=== PATIENT | female | born 1945 | race Caucasian/White ===

== ENCOUNTER 2019-08-29 19:25 | Inpatient (IN) | payer MEDICARE, SELFPAY ==
--- NOTE | ~2019-08-29 | XR_ITS ---
EXAMINATION: XR chest 1V portable INDICATION: Shortness of breath and hypoxia TECHNIQUE: Portable AP chest at 2017 hours COMPARISON: 03/31/2019 FINDINGS: A diffuse interstitial pattern is present. There no airspace opacities lung bases. Cardiome fabio is noted. There are small pleural effusions. No pneumothorax is identified. IMPRESSION: 1. Cardiomegaly with pulmonary edema. 2. Bibasilar airspace opacities, likely atelectasis. 2. Small pleural effusions. Reviewed, dictated and finalized at location A. ING CENTER MANAGER
--- NOTE | ~2019-08-29 | CT_ITS ---
EXAMINATION: CT brain wo con INDICATION: Multiple falls, head injury COMPARISON: None TECHNIQUE: Standard unenhanced head CT. The dose-length product (DLP) was 605.33 mGy-cm. The mA was a djusted according to patient size. Iterative reconstruction technique was employed. FINDINGS: There is no acute intraparenchymal hemorrhage. No evidence of mass lesion. No evidence of a cute infarction. There is mild periventricular and subcortical hypodensity probably related to small vessel ischemic disease. There is mild prominence of the sulci and ventricles related to cerebral atr ophy. Intracranial calcified cerebral atherosclerosis is noted. There are no extra-axial collections. There is no mass effect or midline shift. Changes in the globes are likely from ocular lens surgery. There is mild mucosal thickening of the paranasal sinuses. IMPRESSION: 1. No acute intracranial abnormality. 2. Age related findings. Reviewed, dictated and finalized at location A. IRER KILN CAR
--- NOTE | 2019-08-29 19:28 | ED.GENADULT ---
HPI - General Adult General Chief complaint: Nausea/Vomiting/Diarrhea Stated complaint: nausea Time Seen by Provider: 08/29/19 19:25 Source: patient and EMS Mode of arrival: EMS Limitations: clinical condition History of Present Illness HPI narrative: Patient was brought in by EMS after family called because of her shortness of breath, this is the second call today to that that residence. The patient refused transfer earlier today, the second call included nausea and vomiting. When EMS arrived this time the patient was short of breath, pale, the oxygen saturation was in the low 80s, they placed the patient on oxygen and brought her to the emergency room. There is no family with the patient at this time, report from EMS states that they were told at the scene that she has been being followed by neighborhood planner for a leaky valve for which she needed what sounds like a ISMAEL echo for more evaluation. The N/V is new today. Onset (ago): hour(s) Related Data Allergies Allergy/AdvReac Type Severity Reaction Status Date / Time No Known Allergies Allergy Verified 03/20/19 11:55 Review of Systems Review of Systems: ROS unobtainable: unobtainable due to mental condition [facility] Surgical History Surgical History Stented coronary artery Family History Family History Sibling Patient's brother is in good health Family history of malignant neoplasm Father Family history of diabetes mellitus in first degree relative Family history of heart disease in male family member before age 55 Diabetes mellitus Family history of cardiovascular disease Family history of congestive heart failure Mother Family history of diabetes mellitus in first degree relative Diabetes mellitus Other Hypertension Social History Social History Smoking status: Never smoker Alcohol intake: never Gender identity (if verbalized by the patient): Female Exam Const: General: diaphoretic and ill appearing (pale and lethargic) acutely HENMT: Head: hematoma (frontal, in hair line. Now green in color.) Ears: TM's normal bilaterally Mouth: Yes dry mucous membranes Eyes: Conjunctivae: conjunctivae normal Pupils: Equal, round and reactive pupils present EOM: EOMs intact bilaterally Chest: Chest palpation & inspection: normal inspection of the chest Resp: Effort & Inspection: tachypneic Auscultation: rales bilateral and diminished lung sounds (both bases) Cardio: Rate: regular rate and tachycardic Rhythm: regular rhythm Heart sounds: Murmur heart sound present continuous GI: GI Palp: Yes Soft to palpation Auscultation: normal bowel sounds Skin: General skin exam: normal color Other: bruising over middle forehead. Extrem: General: normal to inspection, no clubbing, cyanosis or edema and other (cool to touch) Course Course Emergency Course: Patient's is at bedside and adding to the history. Patient is more alert with improved oxygenation and also able to give some history. Patient's states that she began vomiting this afternoon, she only vomited once and the patient states it was because she drank a large volume of Pedialyte and then some Pepto-Bismol. She had been feeling well and that is why she was drinking Pedialyte, the says she finally he finally got her to drink some Gatorade as well. She has not been well for several days with her breathing. Patient also states that on Sunday they went to a and her legs were not working right , she is she and her both state that she was staggering, unable to walk in a straight line. She fell and hit her head 3 weeks ago and then fell again 3 days ago, hence the bruise on her upper forehead. Her also tells me that he had been ill himself and had been in charge of her medications, she is not relia
--- NOTE | 2019-08-29 19:41 | ECG_ITS ---
Measurements Intervals Marcell Rate: 70 P: 76 WI: 159 QRS: 61 QRSD: 98 T: 31 QT: 428 QTc: 463 Interpretive Statements SINUS RHYTHM LOW QRS VOLTAGE- DIFFUSE LEADS BASELINE ARTIFACT- II, III, AVL, AVF, V1-V6 BORDERLINE ECG Electronically Signed On 08-30-2019 8:21:12 OYSTER FISHERMAN by Gregory Donahue D.O.
[2019-08-29 20:04] LABS: Alveolar/Arterial O2 Gradient 580.6 mmHg; Base Excess ABG -10.4 mEq/l (+/-2.0); Fractional Inspired Oxygen 100 %; HCO3 ABG 16.2 mEq/l (22.0-26.0); Oxygen Content ABG 19.8 %vol (16.0-22.0); Oxyhemoglobin 94.9 % THb (90.0-100.0); PCO2 ABG 38.7 mmHg (35.0-45.0); PO2 ABG 93.7 mmHg (80.0-100.0); PO2 FiO2 Ratio Arterial Blood 0.94 %; Total Hemoglobin 14.8 g/dL (12.0-18.0)
[2019-08-29 20:05] LABS: Device NON-REBREATHER MASK; Site Drawn RIGHT BRACHIAL; pH ABG 7.241 (7.350-7.450)
[2019-08-29 20:12] VITALS: BP 145/95; PULSE 80; RESP 32; TEMP 36.2; O2SAT 86
[2019-08-29 20:18] LABS: Basophils Absolute Auto 0.1 K/mm3 (0.0-0.1); Eosinophils Absolute Auto 0.1 K/mm3 (0-0.3); Eosinophils Percent Auto 0.4 % (0-4.4); Hematocrit 45.5 % (37.0-47.0); Hemoglobin 14.7 g/dL (12.0-15.0); Immature Granulocyte Absolute 0.09 K/mm3 (0.00-0.031); Immature Granulocyte Percent A 0.7 % (0-0.5); Immature Platelet Fraction Pct 17.5 % (0.9-11.2); Lymphocytes Absolute Auto 3.59 K/mm3 (0.9-3.2); Lymphocytes Percent Auto 28.6 % (18.3-44.2); Mean Corpuscular HGB Conc 32.3 g/dl (32-36); Mean Corpuscular Hemoglobin 31.7 pg (26-34); Mean Corpuscular Volume 98.3 fl (80-100); Mean Platelet Volume 13.9 fl (7.4-10.4); Monocytes Absolute Auto 0.7 K/mm3 (0.1-0.6); Monocytes Percent Auto 5.5 % (2.6-8.5); Neutrophils Percent Auto 63.8 % (45.5-73.1); Platelet Count Result 209 k/mm3 (150-375); Red Blood Count 4.63 M/mm3 (4.2-5.4); Red Cell Distribution Width 13.6 % (11.5-14.5); White Blood Count 12.5 K/mm3 (4.5-10.0)
--- NOTE | 2019-08-29 20:23 | PC.NURSE ---
called to add on bnp
[2019-08-29 20:30] LABS: Alanine Aminotransferase 35 U/L (4-35); Albumin Level 4.1 g/dL (3.5-5.1); Alkaline Phosphatase 89 U/L (38-126); Aspartate Amino Transferase 46 U/L (14-36); Bilirubin,Total 1.3 mg/dL (0.2-1.3); Blood Urea Nitrogen 17 mg/dL (7-17); Calcium 9.1 mg/dL (8.4-10.2); Carbon Dioxide 17 mmol/L (22-30); Chloride 94 mmol/L (98-107); Estimated CRCL calculation 32 ml/min; Estimated Glomerular Filt Rate 40; Glucose 253 mg/dL (65-105); Potassium 4.7 mmol/L (3.4-5.0); Sodium 135 mmol/L (137-145)
[2019-08-29 20:32] LABS: Lactic Acid 7.2 mmol/L (0.7-2.1)
[2019-08-29 20:41] LABS: Troponin I < 0.012 ng/mL (0.000-0.034)
[2019-08-29 20:46] LABS: NT Pro B Type Natriuretic Pept 22600 PG/ML (5-100)
[2019-08-29 20:59] VITALS: BP 117/75; PULSE 66; RESP 32; O2SAT 96
[2019-08-29] MEDS: FUROSEMIDE INJ 40 MG/4 ML VIAL IV PUSH (20:59)
[2019-08-29 21:06] LABS: Add Urine Microscopic? YES; Appearance Urine Clear (Clear); Bilirubin Urine Negative (Negative); Blood Urine Negative (Negative); Color Urine Amber (Yellow); Glucose Urine UA Negative (Negative); Ketones Urine Negative (Negative); Leukocyte Esterase Ur Negative LEU/UL (Negative); Mucus Urine Rare /lpf; Nitrate Urine Negative (Negative); Protein Urine 1+ mg/dL (Negative); RBC Urine 0-2 /hpf (0-2); Specific Grav Ur 1.021 (1.001-1.035); Squamous Epithelial Cell Urine Rare /hpf (Few); Urobilinogen Urine Negative mg/dL (<2.0); WBC Urine 0-3 /hpf
[2019-08-29 21:13] VITALS: BP 110/67; PULSE 65; RESP 24; O2SAT 96
[2019-08-29 21:34] LABS: Beta-Hydroxybutyrate/Acetoacetate 0.29 mmol/L (0.02-0.27)
--- NOTE | 2019-08-29 22:13 | PM.IMHP ---
H&P: HPI History of Present Illness Chief complaint: CHF Narrative: This is a 73 year old with known history of paroxysmal atrial fibrillation, CAD, and combined systolic and diastolic heart failure who is known to follow up with Cardiology at [facility] and presented to our hospital with a complaint of increased shortness of breath, nausea and vomiting. The patient has been feeling ill for the past two days with dull periumbilical abdominal discomfort that has been intermittent in nature. She has also had nausea and vomited a few times today. She only ate soup yesterday and today had a couple of bites of toast. EMS was called out to her house this morning secondary to her shortness of breath but she refused to come to the hospital. [facility] was called again because now she was nauseated and vomiting. She was found to be saturating in the low 80s and was brought to the hospital on oxygen. On my encounter with the patient she complains of increased generalized weakness and just feeling awful. She believes she might have had fever today but denies any coughing, sore throat, congestion, dysuria, hematuria, diarrhea or rectal bleeding. She has not been on antibiotics lately. She does report several falls at home about 3 days ago which she attributed to losing her balance and does have a bruise on the right side of her forehead. The patient was previously followed by the heart care group but she went to [facility] for a second opinion for her 3 leaky valves . She did have an echocardiogram performed about 1 week ago. The patient is not on any anticoagulation despite Cardiology's efforts. Our last known Echocardiogram demonstrated an EF of 40% with severe mitral regurgitation and right ventricular and left ventricular hypokinesis. Review of Systems Review of Systems: All systems reviewed & are unremarkable except as noted in HPI and below [facility] Past Medical History Medical History (Updated 08/30/19 @ 03:58 by Dutch Beaver MD) Anxiety Fibromyalgia H pylori ulcer Hyperlipidemia VICKI (obstructive sleep apnea) Paroxysmal atrial fibrillation Right renal mass Surgical History Surgical History Stented coronary artery Family History Family History Sibling Patient's brother is in good health Family history of malignant neoplasm Father Family history of diabetes mellitus in first degree relative Family history of heart disease in male family member before age 55 Diabetes mellitus Family history of cardiovascular disease Family history of congestive heart failure Mother Family history of diabetes mellitus in first degree relative Diabetes mellitus Other Hypertension Social History Social History Smoking status: Former smoker Alcohol intake: former Substance use: former Gender identity (if verbalized by the patient): Female Spiritual care concerns: No Meds Home Medications and Allergies Home Medications Medication Instructions Recorded Confirmed Type buspirone 5 mg tablet 2.5 mg PO BID #30 tablet 08/08/19 08/29/19 Rx apixaban [Eliquis] 5 mg PO BID 08/29/19 08/29/19 History brimonidine 1 drp OPHTHALMIC (EYE) BID 08/29/19 08/29/19 History diazepam [Valium] 10 mg PO HS PRN 08/29/19 08/29/19 History metoprolol succinate [Toprol XL] 50 mg PO DAILY 08/29/19 08/29/19 History pantoprazole [Protonix] 40 mg PO DAILY 08/29/19 08/29/19 History rosuvastatin [Crestor] 40 mg PO DAILY 08/29/19 08/29/19 History digoxin 125 mcg PO DAILY 08/30/19 08/30/19 History sertraline [Zoloft] 50 mg PO HS 08/30/19 08/30/19 History Allergies Allergy/AdvReac Type Severity Reaction Status Date / Time No Known Allergies Allergy Verified 03/20/19 11:55 Vital Signs Vital Signs - 24 hr 08/29/19 20:12 08/29/19 20:59 08/29/19 21:13 Temperat
[2019-08-29 22:28] VITALS: BP 101/64; PULSE 63; RESP 20; O2SAT 93
--- NOTE | 2019-08-29 22:41 | ADMGEN ---
This patient, Adore Mtz, was admitted to IMU Room 209-01. Patient/family oriented to hospital policies and general routines including ID bracelet, bed and alarms, visiting hours, pain management, procedures, bathroom and other care routines, personal items, smoking policy, room service/diet, and visiting hours. Valuables list has been completed. Information on how to activate the Rapid Response Team has been discussed. Patient/Family are encouraged to report perceived risks to care and to ask questions if they do not understand what they are told or what they should do.
[2019-08-29 22:48] VITALS: PULSE 65
[2019-08-29 22:56] VITALS: BP 110/39; PULSE 65; RESP 18; TEMP 36.3; O2SAT 95; BMI 20.3
[2019-08-29 23:22] LABS: Alveolar/Arterial O2 Gradient 178.9 mmHg; Base Excess ABG -3.7 mEq/l (+/-2.0); Fractional Inspired Oxygen 40 %; HCO3 ABG 20.1 mEq/l (22.0-26.0); Oxygen Content ABG 18.4 %vol (16.0-22.0); Oxygen Saturation ABG 94.1 % (95.0-100.0); Oxyhemoglobin 92.7 % THb (90.0-100.0); PCO2 ABG 32.7 mmHg (35.0-45.0); PO2 ABG 68.7 mmHg (80.0-100.0); PO2 FiO2 Ratio Arterial Blood 1.72 %; Total Hemoglobin 14.1 g/dL (12.0-18.0); pH ABG 7.406 (7.350-7.450)
[2019-08-29 23:24] LABS: Device NASAL CANNULA; Modified Allen's Test Pass; Site Drawn LEFT RADIAL
[2019-08-30] VITALS (15 sets, daily range): BP systolic 97–118; BP diastolic 40–71; PULSE 67–142; RESP 16–18; TEMP 36.1–37.1; O2SAT 94–99
[2019-08-30 00:24] LABS: Glucose Point of Care 121 (65-105)
[2019-08-30] MEDS: DIGOXIN INJ 250 MCG/ML 2 ML AMP (*BKC) 500 MCG IV PUSH (01:01)
[2019-08-30] MEDS: APIXABAN 5 MG TABLET PO (02:17)
[2019-08-30] MEDS: SERTRALINE HCL 50 MG TABLET PO (02:17)
[2019-08-30] MEDS: DIAZEPAM 10 MG TABLET PO (02:19)
[2019-08-30 03:20] LABS: Basophils Absolute Auto 0.1 K/mm3 (0.0-0.1); Basophils Percent Auto 0.4 % (0.2-1.2); Hematocrit 41.2 % (37.0-47.0); Hemoglobin 13.8 g/dL (12.0-15.0); Immature Granulocyte Absolute 0.08 K/mm3 (0.00-0.031); Immature Granulocyte Percent A 0.7 % (0-0.5); Immature Platelet Fraction Pct 18.6 % (0.9-11.2); Lymphocytes Absolute Auto 1.23 K/mm3 (0.9-3.2); Lymphocytes Percent Auto 10.5 % (18.3-44.2); Mean Corpuscular HGB Conc 33.5 g/dl (32-36); Mean Corpuscular Hemoglobin 31.7 pg (26-34); Mean Corpuscular Volume 94.7 fl (80-100); Monocytes Absolute Auto 0.8 K/mm3 (0.1-0.6); Monocytes Percent Auto 6.8 % (2.6-8.5); Neutrophils Absolute Auto 9.5 K/mm3 (1.3-6.7); Neutrophils Percent Auto 81.6 % (45.5-73.1); Red Blood Count 4.35 M/mm3 (4.2-5.4); Red Cell Distribution Width 13.3 % (11.5-14.5); White Blood Count 11.7 K/mm3 (4.5-10.0)
[2019-08-30 03:30] LABS: Lactic Acid Reflex 1.9 mmol/L (0.7-2.1)
[2019-08-30 03:31] LABS: Blood Urea Nitrogen 18 mg/dL (7-17); Calcium 8.4 mg/dL (8.4-10.2); Carbon Dioxide 27 mmol/L (22-30); Chloride 95 mmol/L (98-107); Estimated CRCL calculation 34 ml/min; Estimated Glomerular Filt Rate 44; Glucose 76 mg/dL (65-105); Magnesium 1.9 mg/dL (1.6-2.3); Sodium 134 mmol/L (137-145)
[2019-08-30 03:33] LABS: Hemoglobin A1C 4.8 % (<5.7)
[2019-08-30] MEDS: PANTOPRAZOLE SODIUM IV 40 MG VIAL IV PUSH (08:36)
[2019-08-30] MEDS: METOPROLOL SUCCINATE EXT REL 50 MG TABCR PO (08:37)
[2019-08-30] MEDS: ROSUVASTATIN 10 MG TABLET 40 MG PO (08:37)
[2019-08-30] MEDS: BRIMONIDINE TARTRATE 0.2% OP SOLN 5 ML BTL 1 DROP EACH EYE (08:38)
--- NOTE | 2019-08-30 12:34 | PM.CNCAR ---
Assessment and Plan Assessment and plan (1) Paroxysmal atrial fibrillation: Code(s): I48.0 - Paroxysmal atrial fibrillation Status: Chronic Assessment and Plan: Currently she is in AFib but rate is well controlled, she is on Eliquis but she has risk of falling as she had multiple falls for the past few months, she seems to be confused, making it very high risk for falling and according bleeding, with that in mind she would be better of switched to full-dose aspirin and stop the Eliquis (2) Acute CHF: Qualifiers: Heart failure type: combined systolic and diastolic Qualified Code(s): I50.41 - Acute combined systolic (congestive) and diastolic (congestive) heart failure Code(s): I50.9 - Heart failure, unspecified Status: Acute Assessment and Plan: Initially was having mild respiratory distress, currently she seems to be well compensated, lungs are clear, she seems to be stable from cardiac standpoint to be discharged to have a follow-up as an outpatient. She sees transfer and pumphouse operator in [facility], she can follow up there or she can come follow-up here if she wants to (3) Metabolic acidosis with increased anion gap and accumulation of organic acids: Code(s): E87.2 - Acidosis Status: Acute (4) Fall: Code(s): W19.XXXA - Unspecified fall, initial encounter Status: Acute Assessment and Plan: Multiple falls, would stop Eliquis due to fall and risk of bleeding (5) Mitral incompetence: Code(s): I34.0 - Nonrheumatic mitral (valve) insufficiency Status: Acute Assessment and Plan: She had echocardiogram at [facility], will try to get that. Additional Plan Thank you for allowing me to participate in this patient's care, I will be following up with you. Please do not hesitate to call me for any other inquiry History of Present Illness History of Present Illness Consult date/time: 08/30/19 12:34 73 years old lady with history of chronic atrial fibrillation, history of confusion, peptic ulcer disease, was admitted to the hospital because of worsening shortness of breath. Apparently she was at [facility] with possible acute myocardial fraction, she had workup which was negative but subsequently discharged, she was noted to have mitral regurgitation on her echo, and she has history of [id number] shortness of breath with mild orthopnea. No PNDs, no significant leg swelling. She has mild shortness breath with mild exertion, no recent chest pain, she has history of chronic atrial fibrillation but no history of current palpitation. She had frequent falls recently, but no major injury no bruises. Currently she is comfortable, lying in bed, she seems to be slightly confused. Reason For Visit: CHF Review of Systems Constitutional: Constitutional: Reports fatigue Cardiovascular: Cardiovascular: Reports as per HPI Respiratory: Respiratory: Reports dyspnea and Reports dyspnea on exertion Gastrointestinal: Gastrointestinal: Reports as per HPI and Reports bloating PMFSH Past Medical History Medical History Anxiety Fibromyalgia H pylori ulcer Hyperlipidemia VICKI (obstructive sleep apnea) Paroxysmal atrial fibrillation Right renal mass Surgical History Surgical History Stented coronary artery Family History Family History Sibling Patient's brother is in good health Family history of malignant neoplasm Father Family history of diabetes mellitus in first degree relative Family history of heart disease in male family member before age 55 Diabetes mellitus Family history of cardiovascular disease Family history of congestive heart failure Mother Family history of diabetes mellitus in first degree relative Diabetes mellitus Other Hypertension
[2019-08-30 13:46] LABS: NT Pro B Type Natriuretic Pept > 35000 PG/ML (5-100)
--- NOTE | 2019-08-30 15:51 | PM.IMPN ---
Progress Note: A&P Assessment and Plan (1) Acute respiratory failure: Qualifiers: Respiratory failure complication: hypoxia Qualified Code(s): J96.01 - Acute respiratory failure with hypoxia Code(s): J96.00 - Acute respiratory failure, unspecified whether with hypoxia or hypercapnia Status: Acute Assessment and Plan: Likely secondary to pulmonary edema and acute CHF exacerbation. continue oxygen and iv lasix for diuresis. (2) Acute CHF: Qualifiers: Heart failure type: combined systolic and diastolic Qualified Code(s): I50.41 - Acute combined systolic (congestive) and diastolic (congestive) heart failure Code(s): I50.9 - Heart failure, unspecified Status: Acute Assessment and Plan: Try to obtain notes from [facility] Echocardiogram was just obtained last week at [facility] and we will obtain a copy of the report. Cardiology consultation in am. - Dr. Box. (3) Pulmonary edema: Qualifiers: Chronicity: acute Qualified Code(s): J81.0 - Acute pulmonary edema Code(s): J81.1 - Chronic pulmonary edema Status: Acute Assessment and Plan: Appears to be secondary to acute CHF exacerbation. The patient has already recieved IV lasix in the ER.continue diuresis with iv lasix (4) Severe sepsis: Code(s): A41.9 - Sepsis, unspecified organism; R65.20 - Severe sepsis without septic shock Status: Acute Assessment and Plan: W/ elevated lactic acid and respiratory failure - no currently on iv abx, continue to watch. (5) Metabolic acidosis with increased anion gap and accumulation of organic acids: Code(s): E87.2 - Acidosis Status: Acute Assessment and Plan: Likely secondary to both acute CHf exacerbation as well as acute renal failure. (6) Acute renal failure: Qualifiers: Acute renal failure type: unspecified Qualified Code(s): N17.9 - Acute kidney failure, unspecified Code(s): N17.9 - Acute kidney failure, unspecified Status: Acute Assessment and Plan: Likely secondary to acute CHF. (7) Paroxysmal atrial fibrillation: Code(s): I48.0 - Paroxysmal atrial fibrillation Status: Chronic Assessment and Plan: Continue digoxin and Eliquis. (8) Anxiety: Code(s): F41.9 - Anxiety disorder, unspecified Status: Chronic Assessment and Plan: Continue diazepam. (9) Hyperlipidemia: Qualifiers: Hyperlipidemia type: unspecified Qualified Code(s): E78.5 - Hyperlipidemia, unspecified Code(s): E78.5 - Hyperlipidemia, unspecified Status: Chronic Assessment and Plan: Continue crestor (10) Fibromyalgia: Code(s): M79.7 - Fibromyalgia Status: Chronic Assessment and Plan: Pain control as needed. Subjective Date/time seen: 08/30/19 15:51 Interval history: 3 year old with known history of paroxysmal atrial fibrillation, CAD, and combined systolic and diastolic heart failure who is known to follow up with Cardiology at [facility], admiited here with increased shortness of breath, nausea and vomiting. Recent echo shows - EF of 40% with severe mitral regurgitation and right ventricular and left ventricular hypokinesis. pt is a poor histian due to dementia, cxr shows pulmonary edema here, ct abdomen shows 1.4 cm right renal lesion demonstrating both enhancing soft tissue as well as a significant component of macroscopic fat consistent with a benign angiomyolipoma.ct head shows- no acute abnormalities Review of Systems Review of Systems: All systems reviewed & are unremarkable except as noted in HPI and below Exam Const: General: cooperative, no acute distress, alert, awake and ill appearing chronically Nutritional Appearance: thin and underweight Orientation/consciousness: patient oriented x3 HENMT: Head: normal to inspection General nose exam: Normal ex
[2019-08-30] MEDS: busPIRone HCL 2.5 MG TABLET PO (17:07)
--- NOTE | 2019-08-30 17:14 | PC.NURSE ---
Patient received from IMU. Patient in bed resting comfortably with no complaints at this time. Will continue to monitor patient.
[2019-08-31] VITALS (14 sets, daily range): BP systolic 99–111; BP diastolic 50–75; PULSE 67–96; RESP 16–18; TEMP 36.3–37.2; O2SAT 95–98
[2019-08-31] MEDS: SERTRALINE HCL 50 MG TABLET PO ×2 (00:35→20:19)
[2019-08-31] MEDS: DIAZEPAM 5 MG TABLET 10 MG PO ×2 (01:46→20:19)
[2019-08-31 06:00] LABS: Hematocrit 39.5 % (37.0-47.0); Hemoglobin 13.2 g/dL (12.0-15.0); Mean Corpuscular HGB Conc 33.4 g/dl (32-36); Mean Corpuscular Hemoglobin 32.1 pg (26-34); Mean Corpuscular Volume 96.1 fl (80-100); Mean Platelet Volume 12.6 fl (7.4-10.4); Platelet Count Result 155 k/mm3 (150-375); Red Blood Count 4.11 M/mm3 (4.2-5.4); Red Cell Distribution Width 13.5 % (11.5-14.5); White Blood Count 10.1 K/mm3 (4.5-10.0)
[2019-08-31 06:19] LABS: Blood Urea Nitrogen 11 mg/dL (7-17); Calcium 8.3 mg/dL (8.4-10.2); Carbon Dioxide 31 mmol/L (22-30); Chloride 102 mmol/L (98-107); Estimated CRCL calculation 37 ml/min; Estimated Glomerular Filt Rate 54; Glucose 86 mg/dL (65-105); Potassium 3.5 mmol/L (3.4-5.0); Sodium 138 mmol/L (137-145)
[2019-08-31] MEDS: ROSUVASTATIN 10 MG TABLET 40 MG PO (08:18)
[2019-08-31] MEDS: busPIRone HCL 2.5 MG TABLET PO ×2 (08:19→17:55)
[2019-08-31] MEDS: DIGOXIN TAB 125 MCG TABLET PO (08:19)
[2019-08-31] MEDS: ASPIRIN 325 MG ENTERIC TABLET PO (08:19)
[2019-08-31] MEDS: FUROSEMIDE INJ 40 MG/4 ML VIAL 20 MG IV PUSH (08:20)
[2019-08-31] MEDS: BRIMONIDINE TARTRATE 0.2% OP SOLN 5 ML BTL 1 DROP EACH EYE ×2 (08:20→17:55)
[2019-08-31] MEDS: METOPROLOL SUCCINATE EXT REL 50 MG TABCR PO (08:20)
[2019-08-31] MEDS: PANTOPRAZOLE 40 MG TABLET PO (08:21)
--- NOTE | 2019-08-31 14:33 | PM.PNCARD ---
Progress Note: A&P Assessment and Plan (1) Paroxysmal atrial fibrillation: Code(s): I48.0 - Paroxysmal atrial fibrillation Status: Chronic Assessment and Plan: Currently she is in AFib but rate is well controlled, she is on Eliquis but she has risk of falling as she had multiple falls for the past few months, she seems to be confused, making it very high risk for falling and according bleeding, with that in mind she would be better of switched to full-dose aspirin and stop the Eliquis (2) Acute CHF: Qualifiers: Heart failure type: combined systolic and diastolic Qualified Code(s): I50.41 - Acute combined systolic (congestive) and diastolic (congestive) heart failure Code(s): I50.9 - Heart failure, unspecified Status: Acute Assessment and Plan: Initially was having mild respiratory distress, currently she seems to be well compensated, lungs are clear, she seems to be stable from cardiac standpoint to be discharged to have a follow-up as an outpatient. She sees telecasting technician in [facility], she is scheduled for ISMAEL with them next week she can follow up there. (3) Metabolic acidosis with increased anion gap and accumulation of organic acids: Code(s): E87.2 - Acidosis Status: Acute (4) Fall: Code(s): W19.XXXA - Unspecified fall, initial encounter Status: Acute Assessment and Plan: Multiple falls, would stop Eliquis due to fall and risk of bleeding (5) Mitral incompetence: Code(s): I34.0 - Nonrheumatic mitral (valve) insufficiency Status: Acute Assessment and Plan: She had echocardiogram at [facility] [place], will try to get that. Additional Plan Thank you for allowing me to participate in this patient's care, I will be following up with you. Please do not hesitate to call me for any other inquiry Subjective Date/time seen: 08/31/19 14:33 She seems to be doing okay today, she has mild cough, on the monitor she is in and out of AFib but rate is well controlled. Echocardiogram from [facility] was reviewed which showed normal left ventricular Petterchak function but with moderate to severe mitral valve regurgitation. According to her she is scheduled to have ISMAEL next week with Dr. Falk Exam Narrative: Exam Narrative: Awake alert oriented x2, with some confusion about details, not in acute distress Neck is supple no obvious JVD, no carotid bruit Chest: Good air entry bilaterally, lungs are clear to auscultation and percussion bilaterally Cardiovascular: Irregularly irregular rhythm, 2/6 systolic murmur noted left sternal border Abdomen: Soft nontender bowel sounds positive Extremities: No edema has good pulses distally bilaterally Objective Data Vital Signs Vital Signs: Vital Signs - 24 hr 08/30/19 17:11 08/30/19 20:00 08/30/19 21:36 Temperature 36.7 C Pulse Rate 86 84 101 H Respiratory Rate 18 Blood Pressure 104/55 L Pulse Oximetry 95 08/31/19 00:00 08/31/19 02:00 08/31/19 04:00 Temperature 36.7 C Pulse Rate 71 96 92 Respiratory Rate 16 Blood Pressure 111/58 L Pulse Oximetry 96 08/31/19 05:08 08/31/19 08:00 08/31/19 08:19 Temperature 36.8 C Pulse Rate 92 87 89 Respiratory Rate 18 Blood Pressure 99/52 L Pulse Oximetry 95 08/31/19 08:20 08/31/19 10:00 08/31/19 12:00 Temperature 37.0 C Pulse Rate 89 92 82 Respiratory Rate 16 Blood Pressure 110/57 L Pulse Oximetry 98 Intake/Output Intake/Output: Intake & Output 08/28/19 08/29/19 08/30/19 08/31/19 23:59 23:59 23:59 23:59 Intake Total 900 610 Output Total 1200 1150 Balance -300 -540 Meds/Results Medications: Active Medications Generic Name Dose Route Start Last Admin Trade Name Chad PRN Reason Stop Dose Admin Aspirin 325 mg 08/31/19 09:00 08/31/19 08:19 Aspirin Ec PO 325 mg QAM EMILY Administration Brimonidine Tartrate 1 drop 08/30/19 09:00 08/31/19 0
--- NOTE | 2019-08-31 16:24 | PM.IMPN ---
Progress Note: A&P Assessment and Plan (1) Acute respiratory failure: Qualifiers: Respiratory failure complication: hypoxia Qualified Code(s): J96.01 - Acute respiratory failure with hypoxia Code(s): J96.00 - Acute respiratory failure, unspecified whether with hypoxia or hypercapnia Status: Acute Assessment and Plan: Likely secondary to pulmonary edema and acute CHF exacerbation. continue oxygen and iv lasix for diuresis. (2) Acute CHF: Qualifiers: Heart failure type: combined systolic and diastolic Qualified Code(s): I50.41 - Acute combined systolic (congestive) and diastolic (congestive) heart failure Code(s): I50.9 - Heart failure, unspecified Status: Acute Assessment and Plan: Try to obtain notes from [facility] Echocardiogram was just obtained last week at [facility] and we will obtain a copy of the report. Cardiology consultation in am. - Dr. Box. (3) Pulmonary edema: Qualifiers: Chronicity: acute Qualified Code(s): J81.0 - Acute pulmonary edema Code(s): J81.1 - Chronic pulmonary edema Status: Acute Assessment and Plan: Appears to be secondary to acute CHF exacerbation. The patient has already recieved IV lasix in the ER.continue diuresis with iv lasix (4) Severe sepsis: Code(s): A41.9 - Sepsis, unspecified organism; R65.20 - Severe sepsis without septic shock Status: Acute Assessment and Plan: W/ elevated lactic acid and respiratory failure - no currently on iv abx, continue to watch. (5) Metabolic acidosis with increased anion gap and accumulation of organic acids: Code(s): E87.2 - Acidosis Status: Acute Assessment and Plan: Likely secondary to both acute CHf exacerbation as well as acute renal failure. (6) Acute renal failure: Qualifiers: Acute renal failure type: unspecified Qualified Code(s): N17.9 - Acute kidney failure, unspecified Code(s): N17.9 - Acute kidney failure, unspecified Status: Acute Assessment and Plan: Likely secondary to acute CHF. (7) Paroxysmal atrial fibrillation: Code(s): I48.0 - Paroxysmal atrial fibrillation Status: Chronic Assessment and Plan: Continue digoxin and Eliquis. (8) Anxiety: Code(s): F41.9 - Anxiety disorder, unspecified Status: Chronic Assessment and Plan: Continue diazepam. (9) Hyperlipidemia: Qualifiers: Hyperlipidemia type: unspecified Qualified Code(s): E78.5 - Hyperlipidemia, unspecified Code(s): E78.5 - Hyperlipidemia, unspecified Status: Chronic Assessment and Plan: Continue crestor (10) Fibromyalgia: Code(s): M79.7 - Fibromyalgia Status: Chronic Assessment and Plan: Pain control as needed. Subjective Date/time seen: 08/31/19 16:24 Interval history: 73 year old with known history of paroxysmal atrial fibrillation, CAD, and combined systolic and diastolic heart failure who is known to follow up with Cardiology at [facility], admiited here with increased shortness of breath, nausea and vomiting. Pt admitted with pulmonary edema, acute on chronic systolic heart failure. pt feels better breathing is improving. Recent echo shows - EF of 40% with severe mitral regurgitation and right ventricular and left ventricular hypokinesis. pt is a poor histian due to dementia, cxr shows pulmonary edema here, ct abdomen shows 1.4 cm right renal lesion demonstrating both enhancing soft tissue as well as a significant component of macroscopic fat consistent with a benign angiomyolipoma.ct head shows- no acute abnormalities Review of Systems Review of Systems: All systems reviewed & are unremarkable except as noted in HPI and below Cardiovascular: Cardiovascular: Reports leg edema and Reports dyspnea Exam Const: General: ill appearing chronically Nutritional Appeara
[2019-09-01] VITALS (17 sets, daily range): BP systolic 75–127; BP diastolic 40–113; PULSE 60–87; RESP 14–18; TEMP 36.3–36.6; O2SAT 90–100; BMI 19.5
[2019-09-01 05:21] LABS: Hematocrit 37.9 % (37.0-47.0); Hemoglobin 12.5 g/dL (12.0-15.0); Mean Corpuscular Volume 96.9 fl (80-100); Mean Platelet Volume 12.3 fl (7.4-10.4); Platelet Count Result 157 k/mm3 (150-375); Red Blood Count 3.91 M/mm3 (4.2-5.4); Red Cell Distribution Width 13.7 % (11.5-14.5)
[2019-09-01 05:31] LABS: Blood Urea Nitrogen 9 mg/dL (7-17); Calcium 8.3 mg/dL (8.4-10.2); Carbon Dioxide 30 mmol/L (22-30); Chloride 102 mmol/L (98-107); Estimated CRCL calculation 46 ml/min; Estimated Glomerular Filt Rate > 60; Glucose 120 mg/dL (65-105); Potassium 3.5 mmol/L (3.4-5.0); Sodium 137 mmol/L (137-145)
[2019-09-01] MEDS: POTASSIUM CHLORIDE 20 MEQ PACKET (FOR LIQUID) 40 MEQ PO (08:54)
[2019-09-01] MEDS: ROSUVASTATIN 10 MG TABLET 40 MG PO (08:54)
[2019-09-01] MEDS: PANTOPRAZOLE 40 MG TABLET PO (08:55)
[2019-09-01] MEDS: busPIRone HCL 2.5 MG TABLET PO ×2 (08:55→17:28)
[2019-09-01] MEDS: DIGOXIN TAB 125 MCG TABLET PO (08:55)
[2019-09-01] MEDS: BRIMONIDINE TARTRATE 0.2% OP SOLN 5 ML BTL 1 DROP EACH EYE ×2 (08:55→17:28)
[2019-09-01] MEDS: METOPROLOL SUCCINATE EXT REL 50 MG TABCR PO (08:55)
[2019-09-01] MEDS: ASPIRIN 325 MG ENTERIC TABLET PO (08:55)
--- NOTE | 2019-09-01 10:03 | PCPTNOTE ---
Attempted PT eval. Juan Carlos ASHBY stated to hold therapy due to low BP. Will try again later today.
--- NOTE | 2019-09-01 14:07 | PM.PNCARD ---
Progress Note: A&P Assessment and Plan (1) Paroxysmal atrial fibrillation: Code(s): I48.0 - Paroxysmal atrial fibrillation Status: Chronic Assessment and Plan: Currently she is in AFib but rate is well controlled, she is on Eliquis but she has risk of falling as she had multiple falls for the past few months, she seems to be confused, making it very high risk for falling and according bleeding, with that in mind she would be better of switched to full-dose aspirin and stop the Eliquis (2) Acute CHF: Qualifiers: Heart failure type: combined systolic and diastolic Qualified Code(s): I50.41 - Acute combined systolic (congestive) and diastolic (congestive) heart failure Code(s): I50.9 - Heart failure, unspecified Status: Acute Assessment and Plan: Initially was having mild respiratory distress, currently she seems to be well compensated, lungs are clear, she seems to be stable from cardiac standpoint to be discharged to have a follow-up as an outpatient. She sees guidance counselor in [facility], she is scheduled for ISMAEL with them next week she can follow up there. (3) Metabolic acidosis with increased anion gap and accumulation of organic acids: Code(s): E87.2 - Acidosis Status: Acute (4) Fall: Code(s): W19.XXXA - Unspecified fall, initial encounter Status: Acute Assessment and Plan: Multiple falls, would stop Eliquis due to fall and risk of bleeding (5) Mitral incompetence: Code(s): I34.0 - Nonrheumatic mitral (valve) insufficiency Status: Acute Assessment and Plan: She had echocardiogram at [facility], will try to get that. Additional Plan Thank you for allowing me to participate in this patient's care, I will be following up with you. Please do not hesitate to call me for any other inquiry Subjective Date/time seen: 09/01/19 14:07 She feels better today, no shortness of breath and no chest pain no palpitation no dizziness Exam Narrative: Exam Narrative: Awake alert oriented x2, with some confusion about details, not in acute distress Neck is supple no obvious JVD, no carotid bruit Chest: Good air entry bilaterally, lungs are clear to auscultation and percussion bilaterally Cardiovascular: Irregularly irregular rhythm, 2/6 systolic murmur noted left sternal border Abdomen: Soft nontender bowel sounds positive Extremities: No edema has good pulses distally bilaterally Objective Data Vital Signs Vital Signs: Vital Signs - 24 hr 08/31/19 16:00 08/31/19 18:00 08/31/19 20:00 Temperature 37.2 C Pulse Rate 67 89 68 Respiratory Rate 16 Blood Pressure 100/75 Pulse Oximetry 97 08/31/19 22:00 09/01/19 00:00 09/01/19 01:57 Temperature 36.3 C L 36.4 C Pulse Rate 72 64 65 Respiratory Rate 16 14 Blood Pressure 99/50 L 100/55 L Pulse Oximetry 96 95 09/01/19 04:00 09/01/19 05:50 09/01/19 08:00 Temperature 36.3 C L Pulse Rate 61 62 60 Respiratory Rate 16 Blood Pressure 103/58 L Pulse Oximetry 97 09/01/19 08:55 09/01/19 09:15 09/01/19 10:00 Temperature 36.6 C Pulse Rate 77 77 87 Respiratory Rate 16 16 Blood Pressure 105/47 L 75/40 L Pulse Oximetry 95 94 09/01/19 10:10 09/01/19 10:20 09/01/19 11:08 Temperature Pulse Rate Respiratory Rate Blood Pressure 80/50 L 90/50 L Pulse Oximetry 90 09/01/19 12:00 09/01/19 14:00 Temperature 36.4 C Pulse Rate 77 74 Respiratory Rate 16 Blood Pressure 104/45 L Pulse Oximetry 100 Intake/Output Intake/Output: Intake & Output 08/29/19 08/30/19 08/31/19 09/01/19 23:59 23:59 23:59 23:59 Intake Total 900 1440 220 Output Total 1200 2800 850 Balance -300 -1360 -630 Meds/Results Medications: Active Medications Generic Name Dose Route Start Last Admin Trade Name Freq PRN Reason Stop Dose Admin Apixaban 5 mg 09/01/19 17:00 Eliquis PO BID EMILY Aspirin 81 mg 09/02/19 09:00
--- NOTE | 2019-09-01 15:07 | PM.IMPN ---
Progress Note: A&P Assessment and Plan (1) Acute respiratory failure: Qualifiers: Respiratory failure complication: hypoxia Qualified Code(s): J96.01 - Acute respiratory failure with hypoxia Code(s): J96.00 - Acute respiratory failure, unspecified whether with hypoxia or hypercapnia Status: Acute Assessment and Plan: 73 year old with known history of paroxysmal atrial fibrillation, CAD, and combined systolic and diastolic heart failure who is known to follow up with Cardiology at [facility], admiited here with increased shortness of breath, nausea and vomiting. Pt admitted with pulmonary edema, acute on chronic systolic heart failure. pt feels better breathing is improving. Recent echo shows - EF of 40% with severe mitral regurgitation and right ventricular and left ventricular hypokinesis. pt is a poor histian due to dementia, cxr shows pulmonary edema here, ct abdomen shows 1.4 cm right renal lesion demonstrating both enhancing soft tissue as well as a significant component of macroscopic fat consistent with a benign angiomyolipoma.ct head shows- no acute abnormalities interval hx 09/01 patient with severe systolic dysfunction with a mitral wall regurgitation presented with acute chronic systolic dysfunction patient is being diuresed now well compensated we have taken the patient off IV Lasix patient is clinically stayed seen by Cardiology, however her blood pressure was soft this morning, will monitor patient 1 more day possibly discharge her tomorrow (2) Acute CHF: Qualifiers: Heart failure type: combined systolic and diastolic Qualified Code(s): I50.41 - Acute combined systolic (congestive) and diastolic (congestive) heart failure Code(s): I50.9 - Heart failure, unspecified Status: Acute Assessment and Plan: Most likely patient with acute on chronic systolic dysfunction patient is being diuresed clinically improving now off IV Lasix will monitor 1 more day and discharge the patient tomorrow (3) Pulmonary edema: Qualifiers: Chronicity: acute Qualified Code(s): J81.0 - Acute pulmonary edema Code(s): J81.1 - Chronic pulmonary edema Status: Acute Assessment and Plan: Appears to be secondary to acute CHF exacerbation. Plan is above (4) Severe sepsis: Code(s): A41.9 - Sepsis, unspecified organism; R65.20 - Severe sepsis without septic shock Status: Acute Assessment and Plan: W/ elevated lactic acid and respiratory failure - no currently on iv abx, continue to watch. (5) Metabolic acidosis with increased anion gap and accumulation of organic acids: Code(s): E87.2 - Acidosis Status: Acute Assessment and Plan: Likely secondary to both acute CHf exacerbation as well as acute renal failure. Now resolved (6) Acute renal failure: Qualifiers: Acute renal failure type: unspecified Qualified Code(s): N17.9 - Acute kidney failure, unspecified Code(s): N17.9 - Acute kidney failure, unspecified Status: Acute Assessment and Plan: Likely secondary to acute CHF. Now her kidney function is back to baseline (7) Paroxysmal atrial fibrillation: Code(s): I48.0 - Paroxysmal atrial fibrillation Status: Chronic Assessment and Plan: Rate is controlled continue digoxin and Eliquis. (8) Anxiety: Code(s): F41.9 - Anxiety disorder, unspecified Status: Chronic Assessment and Plan: Continue diazepam. (9) Hyperlipidemia: Qualifiers: Hyperlipidemia type: unspecified Qualified Code(s): E78.5 - Hyperlipidemia, unspecified Code(s): E78.5 - Hyperlipidemia, unspecified Status: Chronic Assessment and Plan: Continue crestor (10) Fibromyalgia: Code(s): M79.7 - Fibromyalgia Status: Chronic Assessment and Plan: Pain control as needed. Subjective Date/time seen: 09/01/19 15:07 Interval
[2019-09-01] MEDS: SERTRALINE HCL 50 MG TABLET PO (21:49)
[2019-09-02] VITALS (18 sets, daily range): BP systolic 84–109; BP diastolic 30–50; PULSE 62–83; RESP 16–20; TEMP 36.2–36.9; O2SAT 91–96
[2019-09-02] MEDS: DIAZEPAM 5 MG TABLET 10 MG PO ×2 (01:21→21:29)
[2019-09-02 06:00] LABS: Blood Urea Nitrogen 12 mg/dL (7-17); Calcium 8.3 mg/dL (8.4-10.2); Carbon Dioxide 30 mmol/L (22-30); Chloride 101 mmol/L (98-107); Estimated CRCL calculation 46 ml/min; Estimated Glomerular Filt Rate > 60; Glucose 86 mg/dL (65-105); Sodium 137 mmol/L (137-145)
[2019-09-02] MEDS: ASPIRIN 325 MG TABLET PO (08:47)
[2019-09-02] MEDS: busPIRone HCL 2.5 MG TABLET PO ×2 (08:47→18:00)
[2019-09-02] MEDS: BRIMONIDINE TARTRATE 0.2% OP SOLN 5 ML BTL 1 DROP EACH EYE ×2 (08:47→18:00)
[2019-09-02] MEDS: PANTOPRAZOLE 40 MG TABLET PO (08:48)
[2019-09-02] MEDS: ROSUVASTATIN 10 MG TABLET 40 MG PO (08:49)
[2019-09-02] MEDS: METOPROLOL SUCCINATE EXT REL 25 MG TABCR PO (10:19)
[2019-09-02] MEDS: DIGOXIN TAB 125 MCG TABLET PO (10:20)
--- NOTE | 2019-09-02 10:30 | PCPTNOTE ---
Attempted therapy session. Held per RN due to Low BP. Will attempt again in the afternoon.
--- NOTE | 2019-09-02 10:56 | WPDCDIQUERY2 ---
CDI Query Clarification Request - Sepsis, W/ elevated lactic acid and respiratory failure - no currently on iv abx, continue to watch. has been documented. -No infection has been identified/documented and no antibiotics given. -For diagnosis of sepsis, an infection/suspected infection must be present (per CMS guidelines). Please clarify if sepsis has been ruled in or ruled out. <Temi Gutierrez RN - Last Filed: 09/02/19 11:02>
[2019-09-02] MEDS: SODIUM CHLORIDE 0.9% IV 250 ML 999 ML IV CONT (11:02)
--- NOTE | 2019-09-02 13:24 | PCPTNOTE ---
Attempted Therapy session again. Pt refused treatment. Pt stated she was up all night and was too tired to work with therapy. Therapist explained the importance of therapy and getting up would help her to wake up. Pt agreed therapy was good for her however continued to refuse treatment at this time.
--- NOTE | 2019-09-02 15:15 | PC.NURSE ---
On 09/02/19, the student, Venita Chavez, provided care and completed [facility] documentation on this patient. I have reviewed the student's documentation and agree with the findings.
--- NOTE | 2019-09-02 15:50 | PM.PNCARD ---
Progress Note: A&P Assessment and Plan (1) Paroxysmal atrial fibrillation: Code(s): I48.0 - Paroxysmal atrial fibrillation Status: Chronic Assessment and Plan: Currently she is in AFib but rate is well controlled, she is on Eliquis but she has risk of falling as she had multiple falls for the past few months, she seems to be confused, making it very high risk for falling and according bleeding, with that in mind she would be better of switched to full-dose aspirin and stop the Eliquis (2) Acute CHF: Qualifiers: Heart failure type: combined systolic and diastolic Qualified Code(s): I50.41 - Acute combined systolic (congestive) and diastolic (congestive) heart failure Code(s): I50.9 - Heart failure, unspecified Status: Acute Assessment and Plan: Initially was having mild respiratory distress, currently she seems to be well compensated, lungs are clear, She sees watch crystal edge grinder in [facility], she is scheduled for ISMAEL with them next week she can follow up there. she seems to be stable from cardiac standpoint to be discharged to have a follow-up as an outpatient. (3) Metabolic acidosis with increased anion gap and accumulation of organic acids: Code(s): E87.2 - Acidosis Status: Acute (4) Fall: Code(s): W19.XXXA - Unspecified fall, initial encounter Status: Acute Assessment and Plan: Multiple falls, would stop Eliquis due to fall and risk of bleeding (5) Mitral incompetence: Code(s): I34.0 - Nonrheumatic mitral (valve) insufficiency Status: Acute Assessment and Plan: She had echocardiogram at [facility], will try to get that. Additional Plan Thank you for allowing me to participate in this patient's care, I will be following up with you. Please do not hesitate to call me for any other inquiry Subjective Date/time seen: 09/02/19 15:50 Pleasantly confused. Denies dyspnea or chest pain. Review of Systems Constitutional: Constitutional: Reports fatigue Cardiovascular: Cardiovascular: Reports as per HPI, Reports dyspnea and Reports dyspnea on exertion Respiratory: Respiratory: Reports dyspnea and Reports dyspnea on exertion Gastrointestinal: Gastrointestinal: Reports as per HPI and Reports bloating Endocrine: Endocrine: Reports fatigue Exam Narrative: Exam Narrative: Awake alert oriented x2, with some confusion about details, not in acute distress Neck is supple no obvious JVD, no carotid bruit Chest: Good air entry bilaterally, lungs are clear to auscultation and percussion bilaterally Cardiovascular: Irregularly irregular rhythm, 2/6 systolic murmur noted left sternal border Abdomen: Soft nontender bowel sounds positive Extremities: No edema has good pulses distally bilaterally Objective Data Vital Signs Vital Signs: Vital Signs - 24 hr 09/01/19 16:00 09/01/19 18:00 09/01/19 20:00 Temperature 36.4 C Pulse Rate 82 64 77 Respiratory Rate 16 Blood Pressure 127/113 H Pulse Oximetry 94 09/01/19 22:00 09/02/19 00:00 09/02/19 02:00 Temperature 36.4 C 36.7 C Pulse Rate 63 65 65 Respiratory Rate 18 18 Blood Pressure 90/40 L 102/47 L Pulse Oximetry 90 94 09/02/19 04:00 09/02/19 06:00 09/02/19 08:00 Temperature 36.4 C Pulse Rate 77 83 63 Respiratory Rate 18 Blood Pressure 90/46 L Pulse Oximetry 91 09/02/19 08:30 09/02/19 10:00 09/02/19 10:15 Temperature 36.9 C 36.2 C L Pulse Rate 68 65 Respiratory Rate 20 16 Blood Pressure 109/32 L 84/30 L 84/30 L Pulse Oximetry 94 95 09/02/19 10:19 09/02/19 10:20 09/02/19 12:00 Temperature Pulse Rate 70 70 67 Respiratory Rate Blood Pressure Pulse Oximetry 09/02/19 12:30 09/02/19 12:44 09/02/19 14:00 Temperature 36.5 C 36.5 C Pulse Rate 71 62 Respiratory Rate 16 16 Blood Pressure 100/40 L 100/40 L 90/41 L Pulse Oximetry 95 95 Intake/Output Intake/Output: Intake & Output 08/30/19
--- NOTE | 2019-09-02 16:35 | PM.IMPN ---
Progress Note: A&P Assessment and Plan (1) Acute respiratory failure: Qualifiers: Respiratory failure complication: hypoxia Qualified Code(s): J96.01 - Acute respiratory failure with hypoxia Code(s): J96.00 - Acute respiratory failure, unspecified whether with hypoxia or hypercapnia Status: Acute Assessment and Plan: 73 year old with known history of paroxysmal atrial fibrillation, CAD, and combined systolic and diastolic heart failure who is known to follow up with Cardiology at [facility], admiited here with increased shortness of breath, nausea and vomiting. Pt admitted with pulmonary edema, acute on chronic systolic heart failure. pt feels better breathing is improving. Recent echo shows - EF of 40% with severe mitral regurgitation and right ventricular and left ventricular hypokinesis. pt is a poor histian due to dementia, cxr shows pulmonary edema here, ct abdomen shows 1.4 cm right renal lesion demonstrating both enhancing soft tissue as well as a significant component of macroscopic fat consistent with a benign angiomyolipoma.ct head shows- no acute abnormalities interval hx 09/01 patient with severe systolic dysfunction with a mitral wall regurgitation presented with acute chronic systolic dysfunction patient is being diuresed now well compensated we have taken the patient off IV Lasix patient is clinically stayed seen by Cardiology, however her blood pressure was soft this morning, 09/02 patient was clinically improved however patient blood pressure was most soft see has been taking metoprolol 50 mg q.day be communicated with the electronics parts sales representative and metoprolol is now reduced to 25 mg q.day however her blood pressure remains low will monitor patient overnight and further recommendation to follow (2) Acute CHF: Qualifiers: Heart failure type: combined systolic and diastolic Qualified Code(s): I50.41 - Acute combined systolic (congestive) and diastolic (congestive) heart failure Code(s): I50.9 - Heart failure, unspecified Status: Acute Assessment and Plan: Most likely patient with acute on chronic systolic dysfunction patient is being diuresed clinically improving now off IV Lasix will monitor 1 more day and discharge the patient tomorrow (3) Pulmonary edema: Qualifiers: Chronicity: acute Qualified Code(s): J81.0 - Acute pulmonary edema Code(s): J81.1 - Chronic pulmonary edema Status: Acute Assessment and Plan: Appears to be secondary to acute CHF exacerbation. Plan is above (4) Severe sepsis: Code(s): A41.9 - Sepsis, unspecified organism; R65.20 - Severe sepsis without septic shock Status: Acute Assessment and Plan: W/ elevated lactic acid and respiratory failure - no currently on iv abx, continue to watch. (5) Metabolic acidosis with increased anion gap and accumulation of organic acids: Code(s): E87.2 - Acidosis Status: Acute Assessment and Plan: Likely secondary to both acute CHf exacerbation as well as acute renal failure. Now resolved (6) Acute renal failure: Qualifiers: Acute renal failure type: unspecified Qualified Code(s): N17.9 - Acute kidney failure, unspecified Code(s): N17.9 - Acute kidney failure, unspecified Status: Acute Assessment and Plan: Likely secondary to acute CHF. Now her kidney function is back to baseline (7) Paroxysmal atrial fibrillation: Code(s): I48.0 - Paroxysmal atrial fibrillation Status: Chronic Assessment and Plan: Rate is controlled continue digoxin and Eliquis. (8) Anxiety: Code(s): F41.9 - Anxiety disorder, unspecified Status: Chronic Assessment and Plan: Continue diazepam. (9) Hyperlipidemia: Qualifiers: Hyperlipidemia type: unspecified Qualified Code(s): E78.5 - Hyperlipidemia, unspecified Code(s): E78.5 - Hyperlipidemia, unspecified Statu
[2019-09-02] MEDS: SERTRALINE HCL 50 MG TABLET PO ×2 (21:16→21:29)
[2019-09-03] VITALS (8 sets, daily range): BP systolic 104–109; BP diastolic 39–52; PULSE 66–81; RESP 16–18; TEMP 36.9–37.2; O2SAT 95–98
[2019-09-03 05:53] LABS: Blood Urea Nitrogen 12 mg/dL (7-17); Calcium 8.6 mg/dL (8.4-10.2); Carbon Dioxide 28 mmol/L (22-30); Chloride 103 mmol/L (98-107); Estimated CRCL calculation 52 ml/min; Estimated Glomerular Filt Rate > 60; Glucose 81 mg/dL (65-105); Sodium 139 mmol/L (137-145)
[2019-09-03] MEDS: PANTOPRAZOLE 40 MG TABLET PO (09:19)
[2019-09-03] MEDS: ROSUVASTATIN 10 MG TABLET 40 MG PO (09:19)
[2019-09-03] MEDS: ASPIRIN 325 MG TABLET PO (09:19)
[2019-09-03] MEDS: METOPROLOL SUCCINATE EXT REL 25 MG TABCR PO (09:20)
[2019-09-03] MEDS: busPIRone HCL 2.5 MG TABLET PO (09:20)
[2019-09-03] MEDS: DIGOXIN TAB 125 MCG TABLET PO (09:20)
[2019-09-03] MEDS: BRIMONIDINE TARTRATE 0.2% OP SOLN 5 ML BTL 1 DROP EACH EYE (09:21)
--- NOTE | 2019-09-03 15:35 | PM.DS ---
DS: Diagnosis Admitting Diagnosis Admitting Diagnosis: Acute respiratory failure with hypoxia Discharge Diagnosis (1) Acute respiratory failure: Qualifiers: Respiratory failure complication: hypoxia Qualified Code(s): J96.01 - Acute respiratory failure with hypoxia Code(s): J96.00 - Acute respiratory failure, unspecified whether with hypoxia or hypercapnia Status: Acute Assessment and Plan: 73 year old with known history of paroxysmal atrial fibrillation, CAD, and combined systolic and diastolic heart failure who is known to follow up with Cardiology at [facility], admiited here with increased shortness of breath, nausea and vomiting. Pt admitted with pulmonary edema, acute on chronic systolic heart failure. pt feels better breathing is improving. Recent echo shows - EF of 40% with severe mitral regurgitation and right ventricular and left ventricular hypokinesis. pt is a poor histian due to dementia, cxr shows pulmonary edema here, ct abdomen shows 1.4 cm right renal lesion demonstrating both enhancing soft tissue as well as a significant component of macroscopic fat consistent with a benign angiomyolipoma.ct head shows- no acute abnormalities interval hx 09/01 patient with severe systolic dysfunction with a mitral wall regurgitation presented with acute chronic systolic dysfunction patient is being diuresed now well compensated we have taken the patient off IV Lasix patient is clinically stayed seen by Cardiology, however her blood pressure was soft this morning, 09/02 patient was clinically improved however patient blood pressure was most soft see has been taking metoprolol 50 mg q.day be communicated with the photographer lithographic and metoprolol is now reduced to 25 mg q.day however her blood pressure remains low will monitor patient overnight and further recommendation to follow (2) Acute CHF: Qualifiers: Heart failure type: combined systolic and diastolic Qualified Code(s): I50.41 - Acute combined systolic (congestive) and diastolic (congestive) heart failure Code(s): I50.9 - Heart failure, unspecified Status: Acute Assessment and Plan: Most likely patient with acute on chronic systolic dysfunction patient is being diuresed clinically improving now off IV Lasix will monitor 1 more day and discharge the patient tomorrow (3) Pulmonary edema: Qualifiers: Chronicity: acute Qualified Code(s): J81.0 - Acute pulmonary edema Code(s): J81.1 - Chronic pulmonary edema Status: Acute Assessment and Plan: Appears to be secondary to acute CHF exacerbation. Plan is above (4) Severe sepsis: Code(s): A41.9 - Sepsis, unspecified organism; R65.20 - Severe sepsis without septic shock Status: Acute Assessment and Plan: W/ elevated lactic acid and respiratory failure - no currently on iv abx, continue to watch. (5) Metabolic acidosis with increased anion gap and accumulation of organic acids: Code(s): E87.2 - Acidosis Status: Acute Assessment and Plan: Likely secondary to both acute CHf exacerbation as well as acute renal failure. Now resolved (6) Acute renal failure: Qualifiers: Acute renal failure type: unspecified Qualified Code(s): N17.9 - Acute kidney failure, unspecified Code(s): N17.9 - Acute kidney failure, unspecified Status: Acute Assessment and Plan: Likely secondary to acute CHF. Now her kidney function is back to baseline (7) Paroxysmal atrial fibrillation: Code(s): I48.0 - Paroxysmal atrial fibrillation Status: Chronic Assessment and Plan: Rate is controlled continue digoxin and Eliquis. (8) Anxiety: Code(s): F41.9 - Anxiety disorder, unspecified Status: Chronic Assessment and Plan: Continue diazepam. (9) Hyperlipidemia: Qualifiers: Hyperlipidemia type: unspecified Qualified Code(s): E78.5 - Hyperlipidemia
--- NOTE | 2019-09-03 16:35 | PM.PNCARD ---
Progress Note: A&P Assessment and Plan (1) Paroxysmal atrial fibrillation: Code(s): I48.0 - Paroxysmal atrial fibrillation Status: Chronic Assessment and Plan: Currently she is in AFib but rate is well controlled, she is on Eliquis but she has risk of falling as she had multiple falls for the past few months, she seems to be confused, making it very high risk for falling and according bleeding, with that in mind she would be better of switched to full-dose aspirin and stop the Eliquis (2) Acute CHF: Qualifiers: Heart failure type: combined systolic and diastolic Qualified Code(s): I50.41 - Acute combined systolic (congestive) and diastolic (congestive) heart failure Code(s): I50.9 - Heart failure, unspecified Status: Acute Assessment and Plan: Initially was having mild respiratory distress, currently she seems to be well compensated, lungs are clear, She sees foundry hand in [facility], she is scheduled for [facility]MA[facility] with them next week she can follow up there. she seems to be stable from cardiac standpoint to be discharged to have a follow-up as an outpatient. (3) Metabolic acidosis with increased anion gap and accumulation of organic acids: Code(s): E87.2 - Acidosis Status: Acute (4) Fall: Code(s): W19.XXXA - Unspecified fall, initial encounter Status: Acute Assessment and Plan: Multiple falls, would stop Eliquis due to fall and risk of bleeding (5) Mitral incompetence: Code(s): I34.0 - Nonrheumatic mitral (valve) insufficiency Status: Acute Assessment and Plan: She had echocardiogram at [facility], will try to get that. Additional Plan Thank you for allowing me to participate in this patient's care, I will be following up with you. Please do not hesitate to call me for any other inquiry Subjective Date/time seen: 09/03/19 16:35 Feels okay today no chest pain no shortness of breath Exam Narrative: Exam Narrative: Awake alert oriented x2, with some confusion about details, not in acute distress Neck is supple no obvious JVD, no carotid bruit Chest: Good air entry bilaterally, lungs are clear to auscultation and percussion bilaterally Cardiovascular: Irregularly irregular rhythm, 2/6 systolic murmur noted left sternal border Abdomen: Soft nontender bowel sounds positive Extremities: No edema has good pulses distally bilaterally Objective Data Vital Signs Vital Signs: Vital Signs - 24 hr 09/02/19 19:45 09/02/19 20:00 09/02/19 22:00 Temperature 36.2 C L Pulse Rate 74 70 Respiratory Rate 18 Blood Pressure 100/50 L Pulse Oximetry 92 96 09/03/19 00:00 09/03/19 04:00 09/03/19 06:00 Temperature 36.9 C Pulse Rate 70 74 67 Respiratory Rate 18 Blood Pressure 104/39 L Pulse Oximetry 97 09/03/19 08:00 09/03/19 09:20 09/03/19 10:00 Temperature 36.9 C Pulse Rate 71 66 75 Respiratory Rate 16 Blood Pressure 105/50 L Pulse Oximetry 95 09/03/19 12:00 09/03/19 14:00 Temperature 37.2 C Pulse Rate 75 81 Respiratory Rate 16 Blood Pressure 109/52 L Pulse Oximetry 98 Intake/Output Intake/Output: Intake & Output 08/31/19 09/01/19 09/02/19 09/03/19 23:59 23:59 23:59 23:59 Intake Total 1440 1100 1590 1180 Output Total 2800 1225 2400 450 Balance -1360 -125 -810 730 Meds/Results Radiology Results: ITS Impressions Chest X-Ray 08/29/19 20:27 IMPRESSION: 1. Cardiomegaly with pulmonary edema. 2. Bibasilar airspace opacities, likely atelectasis. 2. Small pleural effusions. Head CT 08/29/19 21:26 IMPRESSION: 1. No acute intracranial abnormality. 2. Age related findings. Labs Labs: Laboratory Results - last 24 hr 09/03/19 05:07 Sodium 139 Potassium 4.0 Chloride 103 Carbon Dioxide 28 BUN 12 Creatinine 0.70 Estim Creat Clear Calc 52 Estimated GFR > 60 Glucose 81 Calcium 8.6 Quality VTE Prophylaxis VTE p
== END 2019-09-03 16:07 | disposition home health service (06) | DRG 291 ==
LOC: ANHED 21:41 → ANHIMU 08-30 01:30 → ANH2MED 09-01 10:31 → ANHIMU 09-05 15:23
PROVIDERS: Family Medicine; Physician Assistant; Specialist; Admitting Provider Family Medicine; Emergency Provider Emergency Medicine; PCP Internal Medicine; Visit Provider Family Medicine
DX: I50.41 Acute combined systolic (congestive) and diastolic (congestive) heart failure (principal); J96.01 Acute respiratory failure with hypoxia; E87.2 Acidosis; N17.9 Acute kidney failure, unspecified; I25.10 Atherosclerotic heart disease of native coronary artery without angina pectoris; I48.0 Paroxysmal atrial fibrillation; F41.9 Anxiety disorder, unspecified; E78.5 Hyperlipidemia, unspecified; M79.7 Fibromyalgia; I34.0 Nonrheumatic mitral (valve) insufficiency; G47.33 Obstructive sleep apnea (adult) (pediatric); Z87.891 Personal history of nicotine dependence; Z87.11 Personal history of peptic ulcer disease; Z95.5 Presence of coronary angioplasty implant and graft; Z91.81 History of falling
CPT/HCPCS: 36415; 36600; 70450; 71045; 80048; 80053; 81001; 82010; 82805; 83036; 83605; 83735; 83880; 84484; 85025; 85027; 85055; 87040; 93005; 96374; 97116; 97161; 97165; 97530; 99285; A9270; C9113; J1160; J1940; J7050

== ENCOUNTER 2019-12-16 10:36 | Emergency (ER) | payer MEDICARE, SELFPAY ==
--- NOTE | ~2019-12-16 | XR_ITS ---
EXAMINATION: XR chest 2V 12/16/2019 12:06 INDICATION: Weakness and shortness of breath PROCEDURE: 2 view chest COMPARISON: Comparison to multiple prior studies sequentially, with oldest reviewed study dated 02/10. FINDINGS: The lungs are clear. The cardiomediastinal silhouette is within normal limits. There are no pleural effusions. There is no pneumothorax suspected. There is atherosclerosis. IMPRESSION: 1: NO ACUTE CARDIOPULMONARY DISEASE. Reviewed, dictated and finalized at location A.
--- NOTE | ~2019-12-16 | CT_ITS ---
EXAMINATION: CT brain wo con DATE: 12/16/2019 11:55 INDICATION: Confusion. Weakness. TECHNIQUE: Computed tomography (CT) of the head was performed without intravenous contrast. The mA wa s adjusted according to patient size. Iterative reconstruction technique was employed. The dose-lengt h product was 605.33 mGy-cm. COMPARISON: Head CT 08/29/2019 FINDINGS: There is no intracranial hemorrhage, acute infarction, or abnormal intracranial mass lesion . The ventricles are normal in size. There are likely changes of ocular lens replacement surgeries. T he paranasal sinuses are clear. There is a trace right mastoid effusion. IMPRESSION: 1. Normal brain. Reviewed, dictated and finalized at location A. IMPRESSION: 1. Normal brain.
[2019-12-16 10:34] VITALS: BP 131/59; PULSE 76; RESP 14; TEMP 36.7
--- NOTE | 2019-12-16 11:24 | ECG_ITS ---
Measurements Intervals [place] Rate: 73 P: IN: 0 QRS: 33 QRSD: 92 T: -8 QT: 368 QTc: 406 Interpretive Statements ATRIAL FIBRILLATION BORDERLINE ST-T WAVE ABNORMALITY- ANTEROLAT/INF LEADS BASELINE ARTIFACT- I, II, III, AVF ABNORMAL ECG Electronically Signed On 12-16-2019 12:43:27 CDT by Gregory Donahue D.O.
--- NOTE | 2019-12-16 11:27 | ED.WEAKNESS ---
HPI - Weakness General Chief complaint: Weakness <María Baxter PA-C - Last Filed: 12/16/19 13:54> Stated complaint: WEAKNESS <HAYLEY Nash Last Filed: 12/16/19 13:54> Time Seen by Provider: 12/16/19 11:09 <HAYLEY Nash Last Filed: 12/16/19 13:54> Source: patient and family (daughter) <HAYLEY Nash Last Filed: 12/16/19 13:54> Mode of arrival: EMS <HAYLEY Nash Last Filed: 12/16/19 13:54> Limitations: other (patient is confused, no diagnosis of dementia) <HAYLEY Nash Last Filed: 12/16/19 13:54> History of Present Illness HPI Narrative: This is a 74 year old female that presents to the ER for increasing confusion over the last 5 months. Reports today sudden worsening. Per daughter she came over today to sit with her and her dad said patient was very confused this morning. Reports she thought she had a visit with her friend this morning that never happened. Reports patient was not able to get up and walk around today. Usually she ambulates with a walker. Lives at home with her who cares for her. Denies recent fall, fever, chest pain, shortness of breath, cough, abdominal pain, vomiting, dysuria or hematuria. <María Baxter PA-C - Last Filed: 12/16/19 13:54> Related Data Home medications: Home Medications Medication Instructions Recorded Confirmed brimonidine 1 drp OPHTHALMIC (EYE) BID 08/29/19 08/29/19 diazepam [Valium] 10 mg PO HS PRN 08/29/19 08/29/19 pantoprazole [Protonix] 40 mg PO DAILY 08/29/19 08/29/19 rosuvastatin [Crestor] 40 mg PO DAILY 08/29/19 08/29/19 digoxin 125 mcg PO DAILY 08/30/19 08/30/19 alprazolam DAILY PRN 12/16/19 loperamide PRN 12/16/19 metoprolol succinate PO DAILY 12/16/19 tramadol mg PRN 12/16/19 <María Baxter PA-C - Last Filed: 12/16/19 13:54> Allergies/Adverse reactions: Allergies Allergy/AdvReac Type Severity Reaction Status Date / Time No Known Allergies Allergy Verified 12/16/19 10:52 <María Baxter PA-C - Last Filed: 12/16/19 13:54> Review of Systems Review of Systems: Narrative: CONSTITUTIONAL: Denies fever ENT: Denies congestion, sore throat CARDIOVASCULAR: Denies chest pain, or edema. RESPIRATORY: Denies cough or dyspnea. GASTROINTESTINAL: Denies abdominal pain, nausea, vomiting, or diarrhea. GENITOURINARY: Denies dysuria or hematuria. NEUROLOGIC: Reports weakness. <María Baxter PA-C - Last Filed: 12/16/19 13:54> All systems reviewed & are unremarkable except as noted in HPI and below <María Baxter PA-C - Last Filed: 12/16/19 13:54> [facility] Social History Social History: Social History Smoking status: Former smoker Alcohol intake: former Substance use: former Gender identity (if verbalized by the patient): Female Spiritual care concerns: No <HAYLEY Nash Last Filed: 12/16/19 13:54> Exam Narrative: Exam Narrative: GENERAL: Elderly, well-nourished, and in no acute distress. HEAD: Normocephalic, atraumatic. EYES: PERRLA and EOMI. ENT: Nares clear, no rhinorrhea or epistaxis. Mucous membranes moist. Oropharynx without tonsillar hypertrophy exudate or other lesions. Bilateral TMs pearly anthony non-bulging NECK: Supple. No adenopathy or masses. CHEST: Clear to auscultation. No respiratory distress. No wheezes rales or rhonchi HEART: Irregularly irregular. No murmur heard. Normal peripheral pulses. ABDOMEN: Soft, nontender, nondistended, normal active bowel sounds. EXTREMITIES: Normal range of motion. No edema. Strength equal in bilateral upper and lower extremities SKIN: Warm, dry, no rash. NEURO: No focal deficits. Alert and oriented x2. Cranial nerves II through XII grossly intact. Normal [id number] PSYCH: Normal mood and affect <María Baxter PA-C - Last Filed: 12/16/19 13:54> Course Vital Signs Vital signs: Vital Signs Temperature 36.7
[2019-12-16 11:49] LABS: Basophils Absolute Auto 0.1 K/mm3 (0.0-0.1); Basophils Percent Auto 0.9 % (0.2-1.2); Eosinophils Absolute Auto 0.3 K/mm3 (0-0.3); Eosinophils Percent Auto 4.3 % (0-4.4); Hematocrit 39.1 % (37.0-47.0); Hemoglobin 13.2 g/dL (12.0-15.0); Immature Granulocyte Absolute 0.02 K/mm3 (0.00-0.031); Immature Granulocyte Percent A 0.3 % (0-0.5); Lymphocytes Absolute Auto 1.17 K/mm3 (0.9-3.2); Lymphocytes Percent Auto 17.2 % (18.3-44.2); Mean Corpuscular HGB Conc 33.8 g/dl (32-36); Mean Corpuscular Hemoglobin 31.7 pg (26-34); Mean Platelet Volume 12.2 fl (7.4-10.4); Monocytes Absolute Auto 0.5 K/mm3 (0.1-0.6); Monocytes Percent Auto 7.2 % (2.6-8.5); Neutrophils Absolute Auto 4.8 K/mm3 (1.3-6.7); Neutrophils Percent Auto 70.1 % (45.5-73.1); Platelet Count Result 170 k/mm3 (150-375); Red Blood Count 4.16 M/mm3 (4.2-5.4); White Blood Count 6.8 K/mm3 (4.5-10.0)
[2019-12-16 11:59] LABS: INR 1.6; Prothrombin Time 18.9 Seconds (11.1-14.7)
[2019-12-16 12:00] LABS: Partial Thromboplastin Time 40.5 SECONDS (22.3-36.8)
[2019-12-16 12:09] LABS: Lactic Acid Reflex 0.7 mmol/L (0.7-2.1)
[2019-12-16 12:15] LABS: CRP 1.1 mg/dL (<1.0)
[2019-12-16 12:21] LABS: NT Pro B Type Natriuretic Pept 3130 PG/ML (5-100)
[2019-12-16 12:32] LABS: Alanine Aminotransferase 26 U/L (4-35); Albumin Level 4.3 g/dL (3.5-5.1); Alkaline Phosphatase 91 U/L (38-126); Aspartate Amino Transferase 48 U/L (14-36); Bilirubin,Total 0.7 mg/dL (0.2-1.3); Blood Urea Nitrogen 16 mg/dL (7-17); Calcium 9.6 mg/dL (8.4-10.2); Carbon Dioxide 33 mmol/L (22-30); Chloride 100 mmol/L (98-107); Estimated CRCL calculation 37 ml/min; Estimated Glomerular Filt Rate > 60; Glucose 92 mg/dL (65-105); Sodium 139 mmol/L (137-145)
[2019-12-16 12:43] LABS: Troponin I < 0.012 ng/mL (0.000-0.034)
[2019-12-16 13:38] LABS: Add Urine Microscopic? YES; Appearance Urine Cloudy (Clear); Bacteria Urine 2+ /hpf; Bilirubin Urine Negative (Negative); Blood Urine 2+ (Negative); Glucose Urine UA Negative (Negative); Ketones Urine Trace mg/dL (Negative); Leukocyte Esterase Ur 3+ LEU/UL (Negative); Mucus Urine Rare /lpf; Nitrate Urine Negative (Negative); Protein Urine 1+ mg/dL (Negative); RBC Urine 21-50 /hpf (0-2); Specific Grav Ur 1.017 (1.001-1.035); Squamous Epithelial Cell Urine Rare /hpf (Few); Urobilinogen Urine Negative mg/dL (<2.0); WBC Urine >75 /hpf
[2019-12-16 13:39] LABS: Color Urine Yellow (Yellow)
[2019-12-16 13:54] LABS: Amphetamine Screen Urine Negative (Negative); Barbiturate Screen Urine Negative (Negative); Benzodiazepines Screen Urine Positive (Negative); Cannabinoid Screen Urine Negative (Negative); Cocaine Screen Urine Negative (Negative); Methadone Screen Urine Negative (Negative); Opiate Screen Urine Negative (Negative); Phencyclidine Screen Urine Negative (Negative)
[2019-12-16 14:03] VITALS: BP 128/46; PULSE 62; RESP 20
[2019-12-16 14:44] VITALS: BP 122/78; PULSE 70; RESP 20; O2SAT 99
== END 2019-12-16 14:46 | disposition home or self-care (01) ==
PROVIDERS: Physician Assistant; Emergency Provider Emergency Medicine; PCP Internal Medicine
DX: N30.00 Acute cystitis without hematuria (principal); R41.0 Disorientation, unspecified; Z87.891 Personal history of nicotine dependence; F41.9 Anxiety disorder, unspecified; M79.7 Fibromyalgia; E78.5 Hyperlipidemia, unspecified; G47.33 Obstructive sleep apnea (adult) (pediatric); I48.0 Paroxysmal atrial fibrillation; Z79.01 Long term (current) use of anticoagulants; Z79.82 Long term (current) use of aspirin
CPT/HCPCS: 36415; 51701; 70450; 71046; 80053; 80307; 81001; 83605; 83880; 84484; 85025; 85610; 85730; 86140; 87077; 87086; 87088; 87186; 93005; 96365; 99284; J0696

== ENCOUNTER 2020-04-16 13:09 | Outpatient (CLI) | payer MEDICARE, SELFPAY ==
[2020-04-16 13:50] LABS: Hemoglobin 12.8 g/dL (12.0-15.0); Mean Corpuscular HGB Conc 34.6 g/dl (32-36); Mean Corpuscular Hemoglobin 32.2 pg (26-34); Mean Platelet Volume 11.5 fl (7.4-10.4); Platelet Count Result 182 k/mm3 (150-375); Red Blood Count 3.98 M/mm3 (4.2-5.4); Red Cell Distribution Width 11.8 % (11.5-14.5); White Blood Count 6.8 K/mm3 (4.5-10.0)
[2020-04-16 14:02] LABS: Alanine Aminotransferase 17 U/L (4-35); Alkaline Phosphatase 106 U/L (38-126); Anion Gap 6 mmol/L (8-16); Aspartate Amino Transferase 30 U/L (14-36); Bilirubin,Total 0.4 mg/dL (0.2-1.3); Blood Urea Nitrogen 18 mg/dL (7-17); Calcium 9.6 mg/dL (8.4-10.2); Carbon Dioxide 33 mmol/L (22-30); Chloride 101 mmol/L (98-107); Estimated Glomerular Filt Rate 54; Glucose 97 mg/dL (65-105); Potassium 4.7 mmol/L (3.4-5.0); Sodium 140 mmol/L (137-145)
[2020-04-16 14:09] LABS: Prealbumin 20.1 mg/dL (17.6-36.0)
== END 2020-04-16 13:10 | disposition home or self-care (01) ==
PROVIDERS: Referring Provider Internal Medicine; Visit Provider Thoracic Surgery (Cardiothoracic Vascular Surgery)
DX: I25.10 Atherosclerotic heart disease of native coronary artery without angina pectoris (principal)
CPT/HCPCS: 36415; 80053; 84134; 85027

== ENCOUNTER 2021-01-19 15:00 | Outpatient (RCR) | payer MEDICARE, SELFPAY ==
--- NOTE | 2020-12-08 13:52 | PCCPR ---
Absent today and tomorrow. 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
--- NOTE | 2020-12-15 14:24 | PCCPR ---
Isa Avitia called states she has had the runs and last couple of days and today she has constipation.
--- NOTE | 2020-12-23 14:10 | PCCPR ---
Absent Kittly called states she feels weak and tired today. States she is not eating well today possiblly her H-pylori. She also felt she over did it in rehab with walking twice.
--- NOTE | 2020-12-29 13:54 | PCCPR ---
Isa Costa's called states she is feeling weak and tired today. She has a heart MD apt tomorrow at 230 so she may be late or unable to make depending how long the apt takes.
--- NOTE | 2021-01-03 15:34 | PCCPR ---
Isa Sanfordty called states she will not be in due to a sudden in her family.
--- NOTE | 2021-01-13 17:28 | PCCPR ---
spoke with Adore today regarding her recent absences. She stated that she has been not feeling well emotionally due to recent in family and this is why she has been absent. Adore said that she would like to resume rehab and plans to return Sunday.
== END 2021-01-19 18:48 | disposition home or self-care (01) ==
LOC: ANHCPREHAB 15:00
DX: Z95.1 Presence of aortocoronary bypass graft (principal); Z95.2 Presence of prosthetic heart valve
CPT/HCPCS: 93798

== ENCOUNTER 2021-01-26 14:28 | Inpatient (IN) | payer MEDICARE, SELFPAY ==
[2021-01-26] VITALS (16 sets, daily range): BP systolic 119–153; BP diastolic 49–76; PULSE 68–73; RESP 11–21; TEMP 36.6–37.2; O2SAT 99–100; BMI 19.5
--- NOTE | ~2021-01-26 | CT_ITS ---
EXAMINATION: CT brain wo con DATE: 01/26/2021 17:33 INDICATION: Confusion and ataxia TECHNIQUE: Computed tomography (CT) of the head was performed without intravenous contrast. Sagittal and coronal reconstructions were performed. The mA was adjusted according to patient size. Iterative reconstruction technique was employed. The dose-length product was 605.33 mGy-cm. COMPARISON: head CT dated 12/16/2019 FINDINGS: No acute intracranial hemorrhage, acute infarction or abnormal extra axial fluid collection. Small re gion of encephalomalacia in the right cerebellar hemisphere consistent with chronic infarct which is new since the prior study. There is symmetric enlargement of the ventricles, particularly the left an d right lateral ventricles which is disproportionate to the sulci which could be seen with either lucila tral predominant atrophy or normal pressure hydrocephalus. No mass/mass effect. Changes of bilateral intraocular lens replacement. The orbits, paranasal sinuses and mastoid air cells are normal. IMPRESSION: 1. Symmetric enlargement of the ventricles which is disproportionate to the increased prominence of t he sulci consistent with either central predominant cerebral atrophy but could also be seen with norm al pressure hydrocephalus (NPH: clinical triad ataxia/gait disturbance, dementia, urinary incontinence). 2. 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 Reviewed, dictated and finalized at location A. IMPRESSION: 1. Symmetric enlargement of the ventricles which is disproportionate to the inc reased prominence of the sulci consistent with either central predominant cereb ral atrophy but could also be seen with normal pressure hydrocephalus (NPH: cli nical triad ataxia/gait disturbance, dementia, urinary incontinence). 2. 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
--- NOTE | ~2021-01-26 | XR_ITS ---
EXAMINATION: XR chest 2V DATE: 01/26/2021 15:45 INDICATION: Chest pain, confusion and dizziness TECHNIQUE: PA and lateral views of the chest were obtained. COMPARISON: Chest radiograph dated 12/16/2019 FINDINGS: Interval postoperative change of prior median sternotomy with surgical clips consistent with prior co ronary artery bypass grafting as well as aortic valve and mitral valve repairs and left atrial append age occlusion device pacemaker. Again noted is coronary artery stenting. There is new mild elevation of the left hemidiaphragm. Lungs remain clear with no focal airspace opacities, pulmonary edema, pleu ral effusion or pneumothorax. The cardiomediastinal silhouette is normal. Mild to moderate thoracic s pondylosis. IMPRESSION: 1. Postoperative changes in the chest as detailed above along with elevation of the left hemidiaphrag m which is since the prior study. No other acute cardiopulmonary disease. Reviewed, dictated and finalized at location A. IMPRESSION: 1. Postoperative changes in the chest as detailed above along with elevation of the left hemidiaphragm which is since the prior study. No other acute cardiopu lmonary disease.
--- NOTE | 2021-01-26 14:54 | ECG_ITS ---
Measurements Intervals [place] Rate: 74 P: 77 AL: 152 QRS: 9 QRSD: 73 T: 54 QT: 360 QTc: 400 Interpretive Statements SINUS RHYTHM ATRIAL PREMATURE COMPLEX MINIMAL Q WAVES- INFERIOR LEADS BORDERLINE T WAVE ABNORMALITY- ANTERIOR LEADS BASELINE ARTIFACT- I, II, III, AVR, AVL BORDERLINE ECG Electronically Signed On 01-26-2021 21:07:07 CDT by Gergory Donahue D.O.
[2021-01-26 15:29] LABS: Basophils Absolute Auto 0.1 K/mm3 (0.0-0.1); Basophils Percent Auto 0.5 % (0.2-1.2); Eosinophils Absolute Auto 0.4 K/mm3 (0-0.3); Eosinophils Percent Auto 3.8 % (0-4.4); Hematocrit 43.4 % (37.0-47.0); Immature Granulocyte Absolute 0.03 K/mm3 (0.00-0.031); Immature Granulocyte Percent A 0.3 % (0-0.5); Lymphocytes Absolute Auto 2.21 K/mm3 (0.9-3.2); Lymphocytes Percent Auto 23.1 % (18.3-44.2); Mean Corpuscular HGB Conc 32.3 g/dl (32-36); Mean Corpuscular Hemoglobin 31.3 pg (26-34); Mean Corpuscular Volume 97.1 fl (80-100); Mean Platelet Volume 12.1 fl (7.4-10.4); Monocytes Absolute Auto 0.7 K/mm3 (0.1-0.6); Neutrophils Absolute Auto 6.2 K/mm3 (1.3-6.7); Neutrophils Percent Auto 65.3 % (45.5-73.1); Platelet Count Result 144 k/mm3 (150-375); Red Blood Count 4.47 M/mm3 (4.2-5.4); Red Cell Distribution Width 11.7 % (11.5-14.5); White Blood Count 9.6 K/mm3 (4.5-10.0)
[2021-01-26 15:35] LABS: Anion Gap 10 mmol/L (8-16); Blood Urea Nitrogen 17 mg/dL (7-17); Calcium 9.6 mg/dL (8.4-10.2); Carbon Dioxide 23 mmol/L (22-30); Chloride 106 mmol/L (98-107); Estimated CRCL calculation 29 ml/min; Estimated Glomerular Filt Rate 44; Glucose 103 mg/dL (65-105); Potassium 4.2 mmol/L (3.4-5.0); Sodium 139 mmol/L (137-145)
[2021-01-26 15:46] LABS: Troponin I < 0.012 ng/mL (0.000-0.034)
[2021-01-26 17:00] LABS: INR 1.2; Prothrombin Time 15.4 Seconds (11.1-14.7)
[2021-01-26 17:02] LABS: Partial Thromboplastin Time 28.2 SECONDS (22.3-36.8)
--- NOTE | 2021-01-26 18:47 | ED.GENADULT ---
HPI - General Adult General Chief complaint: Unspecified Stated complaint: FREQ URINATION, CONFUSION [id number] Time Seen by Provider: 01/26/21 17:09 Source: patient and family Mode of arrival: wheelchair History of Present Illness HPI narrative: 75-year-old with a history of depression, s/p aortic and mitral valve replacement, fibromyalgia with brought in by with complaints of marked weakness, poor appetite unable to walk for past few days. Patient states that she was in cardiac rehab a week ago felt very unstable and nauseated and quit going to the cardiac rehab. She states that since the time of surgery her balance is been getting worse. She denies any headache or chest pain or shortness of breath. She also states that she has been unable to remember events what is going on around her. Onset (ago): day(s) (3) Relieving factors: none Exacerbating factors: none Associated symptoms: confusion Related Data Home Medications Medication Instructions Recorded Confirmed brimonidine 1 drp OPHTHALMIC (EYE) BID 08/29/19 11/05/20 acetaminophen 325 mg capsule 325 mg PO Q6H PRN 10/28/20 11/05/20 Allergies Allergy/AdvReac Type Severity Reaction Status Date / Time No Known Allergies Allergy Verified 01/26/21 17:43 Review of Systems Review of Systems: All systems reviewed & are unremarkable except as noted in HPI and below Constitutional: Constitutional: Reports lethargy, Reports malaise, Reports poor appetite, Reports weakness and Reports weight loss Eyes: Eyes: Reports no additional eye complaints Cardiovascular: Cardiovascular: Reports no additional cardiovascular complaints Respiratory: Respiratory: Reports no additional respiratory complaints Gastrointestinal: Gastrointestinal: Reports no additional gastrointestinal complaints Musculoskeletal: Musculoskeletal: Reports no additional musculoskeletal complaints Neurologic: Reports as per HPI Psychiatric: Psychiatric: Reports no additional psychiatric complaints [facility] Past Medical History Medical History Adverse effect of other nonsteroidal anti-inflammatory drugs [NSAID], initial encounter Anxiety Fibromyalgia Fuchs' corneal dystrophy H pylori ulcer Hyperlipidemia VICKI (obstructive sleep apnea) Paroxysmal atrial fibrillation Renal mass Right renal mass Surgical History Surgical History History of esophagogastroduodenoscopy (EGD) Stented coronary artery Family History Family History Sibling Patient's brother is in good health Family history of malignant neoplasm Father Family history of diabetes mellitus in first degree relative Family history of heart disease in male family member before age 55 Diabetes mellitus Family history of cardiovascular disease Family history of congestive heart failure Mother Family history of diabetes mellitus in first degree relative Diabetes mellitus Other Hypertension Social History Social History Smoking packs per day: 1 Smoking cigarettes per day: 20.0 Years smoked: 15 Smoking pack-years: 15.00 Smoking status: Former smoker Tobacco type: cigarettes Second hand tobacco smoke exposure: No Smoking end date: 07/16/79 Alcohol intake: former Substance use: former Gender identity (if verbalized by the patient): Female Spiritual care concerns: No Exam Narrative: Exam Narrative: GENERAL: Well-appearing, thin, and in no acute distress. HEAD: Normocephalic, atraumatic. EYES: PERRLA and EOMI. NECK: Supple. CHEST: Clear to auscultation. No respiratory distress. HEART: Regular rate and rhythm. No murmur heard. Normal peripheral pulses. ABDOMEN: Soft, nontender, nondistended, normal active bowel sounds. EXTREMITIES: Normal range of motion. No edema. SKIN: Warm, dry, no rash.
[2021-01-26 19:01] LABS: Troponin I < 0.012 ng/mL (0.000-0.034)
[2021-01-26 19:05] LABS: Add Urine Microscopic? YES; Appearance Urine Clear (Clear); Bacteria Urine Trace /hpf; Bilirubin Urine Negative (Negative); Blood Urine 2+ (Negative); Color Urine Yellow (Yellow); Glucose Urine UA Negative (Negative); Ketones Urine Negative (Negative); Leukocyte Esterase Ur Negative LEU/UL (Negative); Mucus Urine Rare /lpf; Nitrate Urine Positive (Negative); Protein Urine Negative (Negative); RBC Urine 0-2 /hpf (0-2); Specific Grav Ur 1.014 (1.001-1.035); Squamous Epithelial Cell Urine Rare /hpf (Few); Urobilinogen Urine Negative mg/dL (<2.0); WBC Urine 0-3 /hpf
[2021-01-26 21:38] LABS: Troponin I < 0.012 ng/mL (0.000-0.034)
[2021-01-26] MEDS: SODIUM CHLORIDE 0.9% IV 1,000 ML 100 ML IV CONT (22:55)
--- NOTE | 2021-01-26 23:10 | ADMGEN ---
This patient, Adore Mzt, was admitted to [facility] Surg Room 331-01. Patient/family oriented to hospital policies and general routines including ID bracelet, bed and alarms, visiting hours, pain management, procedures, bathroom and other care routines, personal items, smoking policy, room service/diet, and visiting hours. Information on how to activate the Rapid Response Team has been discussed. Patient/Family are encouraged to report perceived risks to care and to ask questions if they do not understand what they are told or what they should do.
[2021-01-27 06:00] VITALS: BP 132/50; PULSE 68; RESP 18; TEMP 36.4; O2SAT 99
[2021-01-27] MEDS: SODIUM CHLORIDE 0.9% IV 1,000 ML 100 ML IV CONT (09:08)
--- NOTE | 2021-01-27 10:23 | PM.IMHP ---
H&P: HPI History of Present Illness Date/Time: 01/27/21 10:23 Chief Complaint: Confusion Narrative: This is a 75 year old woman with history of H.pylori diagnosed 5 years ago, rechecked EGD recently and did not have it, [facility] 08/10/20 Aortic Valve Replaced, Mitral Valve repair, CABG s/p x3 by Dr. Elmo Garcia, fibromyalgia, who presented to the ER with complaints of confusion since Aug 2020 but worsening the last 1 month. The patients was giving me most of the history and states she has been intermittently confused, thinking her children are small children, up at night and asleep during the day. She has been having urinary incontinence the last few weeks. She has been going to cardiac rehab with her recent cardiac surgery at [facility] but stopped going 01/21/21 due to generalized weakness and she had an episode of vomiting. The patient's states she does not have a very good appetite, does not eat much at all. she was brought in due to her worsening confusion, weakness, urinary incontinence believing that she had a urinary tract infection which she has had in the past. when I talked to the patient at bedside she is A&O x4, seems to have some slurred speech and talks about having H pylori recently. She believes her H pylori is what is causing her lack of appetite, weight loss symptoms. When talking to her states she had H pylori diagnosed 6 years ago, recently had an EGD showing she does not have H pylori, but states she is adamant that she still does. The patient reports dysuria, frequent urination but states this is been going on for years and she takes some [id number] medications for this. She has not been diagnosed with a UTI recently or on any antibiotics recently. she states she does have some abdominal pain and points to her suprapubic area. The patient does report a headache, denies any vision changes, lightheadedness, dizziness or syncopal episodes. She denies any fevers, chills, chest pain, shortness of breath, cough, nausea, vomiting, Diarrhea, constipation, leg swelling, calf pain, sensation changes, focal weakness, or any other symptoms at this time. Code Status- Full Code POA- Akira PCP- Dr. Cary Review of Systems Review of Systems: ROS unobtainable: Yes unobtainable due to mental status [facility] Past Medical History Medical History (Updated 01/27/21 @ 11:02 by Emelia Castillo PA-C) Adverse effect of other nonsteroidal anti-inflammatory drugs [NSAID], initial encounter Anxiety Confusion Fibromyalgia Fuchs' corneal dystrophy H pylori ulcer Hyperlipidemia VICKI (obstructive sleep apnea) Paroxysmal atrial fibrillation Renal mass Right renal mass Surgical History Surgical History (Updated 01/27/21 @ 10:52 by Emelia Castillo PA-C) History of esophagogastroduodenoscopy (EGD) Hx of aortic valve replacement 08/10/[address] [facility] by Dr. Elmo Garcia Hx of CABG 08/10/[address] [facility] by Dr. Elmo Garcia Hx of mitral valve replacement 08/10/[address] [facility] by Dr. Elmo Garcia Stented coronary artery Family History Family History Sibling Patient's brother is in good health Family history of malignant neoplasm Father Family history of diabetes mellitus in first degree relative Family history of heart disease in male family member before age 55 Diabetes mellitus Family history of cardiovascular disease Family history of congestive heart failure Mother Family history of diabetes mellitus in first degree relative Diabetes mellitus Other Hypertension Social History Social History (Updated 01/27/21 @ 10:52 by Emelia Castillo PA-C) Smoking packs per day: 1 Smoking cigarettes per day: 20.0 Years smoked: 15 Smoking pack-years: 15.00 Smoking status: Former smoker Tobacco type: cigarettes Second hand tobacco smoke exposure: No Smoking end date: 07/16/79 Alcohol intake: former Sub
--- NOTE | 2021-01-27 11:47 | PC.NURSE ---
patient voided 700 ml. bladder scan showing 105. patient states that she feels like she is emptying her bladder after urinating and states that she does not need to urinate at this time. results called to Sonya Castillo
--- NOTE | 2021-01-27 12:09 | PCNSR ---
On 01/27/21, the student,Zoraida Champion, provided care and completed [facility] documentation on this patient. I have reviewed the student's documentation and agree with the findings.
[2021-01-27] MEDS: ROSUVASTATIN 10 MG TABLET 40 MG PO (12:51)
[2021-01-27 12:52] VITALS: PULSE 68
[2021-01-27] MEDS: DIGOXIN TAB 125 MCG TABLET PO (12:52)
[2021-01-27] MEDS: METOPROLOL SUCCINATE EXT REL 50 MG TABCR PO (12:52)
[2021-01-27] MEDS: ENOXAPARIN 60 MG/0.6 ML SYRINGE 50 MG SUB-Q ×2 (12:52→21:05)
[2021-01-27] MEDS: BRIMONIDINE TARTRATE 0.2% OP SOLN 5 ML BTL 1 DROP EACH EYE ×2 (12:52→17:16)
[2021-01-27 14:00] VITALS: BP 128/50; PULSE 65; RESP 18; TEMP 36.8; O2SAT 97
--- NOTE | 2021-01-27 17:00 | WPDNEURCNPN ---
Assessment and Plan Additional Plan patient was admitted to the hospital for the possibility of normal pressure hydrocephalus as per the CT scan with the triad of the gait disturbances dementia bladder dysfunction urinary incontinence considering that she will need a spinal tap to document the normal pressure hydrocephalus and then surgical intervention I suggested them to refer her to the neurosurgeon as an outpatient because [facility] to rule out the possibility of any stroke Consult date: 01/27/21 Time Seen: 11:00 HPI: Adore Mtz is a 75 year old female admitted to the hospital for the complaints of confusion in addition to the ongoing history of 1. H pylori infection diagnosed 5 years ago 2. Status post aortic valve replacement on August 10, 2020 and mitral valve repair along with the history of CABG 3 times 3. Fibromyalgia. Patient presented with the complaints of increasing confusion since August of 2020 and worsening over the last 4 weeks. She has been thinking her children her small children she is up at night and sleeps during the day has been experiencing urinary dysfunction with incontinence she goes to cardiac rehab with recent cardiac surgery at [facility] but stops going on January 21, 2021 for the complaints of generalized weakness and episode of vomiting reportedly she does not have good appetite and does not eat much at all she was brought to the emergency room for the increasing confusion increasing weakness increasing bladder dysfunction with incontinence but when she was examined by the hospitalists she was noted to have slurred speech and she was attributing her problem to the H pylori patient herself reported dysuria frequency of several years duration and she also complains of abdominal pain particularly in the sub proper pubic area she also complained of headache without any other associated symptomatology she does have ongoing history of EGD in the past aortic valve replacement in the past CABG in the past and mitral valve replacement in the past and also history of coronary artery stenting Review of Systems Review of Systems: All systems reviewed & are unremarkable except as noted in HPI and below PMFSH Past Medical History Medical History Adverse effect of other nonsteroidal anti-inflammatory drugs [NSAID], initial encounter Anxiety Confusion Fibromyalgia Fuchs' corneal dystrophy H pylori ulcer Hyperlipidemia VICKI (obstructive sleep apnea) Paroxysmal atrial fibrillation Renal mass Right renal mass Surgical History Surgical History History of esophagogastroduodenoscopy (EGD) Hx of aortic valve replacement 08/10/[address] [facility] by Dr. Elmo Garcia Hx of CABG 08/10/[address] [facility] by Dr. Elmo Garcia Hx of mitral valve replacement 08/10/[address] [facility] by Dr. Elmo Garcia Stented coronary artery Family History Family History Sibling Patient's brother is in good health Family history of malignant neoplasm Father Family history of diabetes mellitus in first degree relative Family history of heart disease in male family member before age 55 Diabetes mellitus Family history of cardiovascular disease Family history of congestive heart failure Mother Family history of diabetes mellitus in first degree relative Diabetes mellitus Other Hypertension Social History Social History Smoking packs per day: 1 Smoking cigarettes per day: 20.0 Years smoked: 15 Smoking pack-years: 15.00 Smoking status: Former smoker Tobacco type: cigarettes Second hand tobacco smoke exposure: No Smoking end date: 07/16/79 Alcohol intake: former Substance use: never Living arrangements: with family Occupation/Education
[2021-01-27 20:00] VITALS: RESP 18; O2SAT 97
[2021-01-27] MEDS: SERTRALINE HCL 50 MG TABLET PO (21:05)
[2021-01-27 22:00] VITALS: BP 121/50; PULSE 62; RESP 18; TEMP 36.7; O2SAT 98
[2021-01-28 06:00] VITALS: BP 117/42; PULSE 72; RESP 20; TEMP 36.6; O2SAT 100
[2021-01-28 08:51] VITALS: PULSE 72
[2021-01-28] MEDS: ROSUVASTATIN 10 MG TABLET 40 MG PO (08:51)
[2021-01-28] MEDS: DIGOXIN TAB 125 MCG TABLET PO (08:51)
[2021-01-28] MEDS: METOPROLOL SUCCINATE EXT REL 50 MG TABCR PO (08:51)
[2021-01-28] MEDS: BRIMONIDINE TARTRATE 0.2% OP SOLN 5 ML BTL 1 DROP EACH EYE (08:51)
[2021-01-28] MEDS: ENOXAPARIN 60 MG/0.6 ML SYRINGE 50 MG SUB-Q (08:51)
--- NOTE | 2021-01-28 12:45 | WPDNEUROPN ---
Objective Data Vital Signs Vital Signs: Vital Signs - 24 hr 01/27/21 12:52 01/27/21 14:00 01/27/21 20:00 Temperature 36.8 C Pulse Rate 68 65 Respiratory Rate 18 18 Blood Pressure 128/50 L Pulse Oximetry 97 97 01/27/21 22:00 01/28/21 06:00 01/28/21 08:51 Temperature 36.7 C 36.6 C Pulse Rate 62 72 72 Respiratory Rate 18 20 Blood Pressure 121/50 L 117/42 L Pulse Oximetry 98 100 Intake/Output Intake/Output: Intake & Output 01/25/21 01/26/21 01/27/21 01/28/21 23:59 23:59 23:59 23:59 Intake Total 2268 440 Output Total 200 700 Balance -200 1568 440 Meds/Results Medications: Active Medications Generic Name Dose Route Start Last Admin Trade Name Freq PRN Reason Stop Dose Admin Acetaminophen 650 mg 01/26/21 19:06 Acetaminophen 325 Mg Tablet PO Q4H PRN Mild Pain (1-3) or Fever Brimonidine Tartrate 1 drop 01/27/21 10:30 01/28/21 08:51 Brimonidine Tartrate 0.2% Op Soln 5 Ml Btl EACH EYE 1 drop BID EMILY Administration Diazepam 10 mg 01/27/21 10:25 Diazepam (*Crx) 10 Mg Tablet PO HS PRN Sleep Digoxin 125 mcg 01/27/21 10:30 01/28/21 08:51 Digoxin Tab 125 Mcg Tablet PO 125 mcg DAILY EMILY Administration Enoxaparin Sodium 50 mg 01/27/21 11:00 01/28/21 08:51 Enoxaparin 60 Mg/0.6 Ml Syringe SUB-Q 50 mg Q12HR EMILY Administration Metoprolol Succinate 50 mg 01/27/21 10:30 01/28/21 08:51 Metoprolol Succinate Ext Rel 50 Mg Tabcr PO 50 mg DAILY EMILY Administration Ondansetron HCl 4 mg 01/26/21 19:06 Ondansetron Inj 4 Mg/2 Ml Vial IV PUSH Q4H PRN Nausea Rosuvastatin Calcium 40 mg 01/27/21 09:00 01/28/21 08:51 Rosuvastatin 10 Mg Tablet PO 40 mg DAILY EMILY Administration Sertraline HCl 50 mg 01/27/21 21:00 01/27/21 21:05 Sertraline Hcl 50 Mg Tablet PO 50 mg HS EMILY Administration Radiology Results: ITS Impressions Chest X-Ray 01/26/21 15:51 IMPRESSION: 1. Postoperative changes in the chest as detailed above along with elevation of the left hemidiaphragm which is since the prior study. No other acute cardiopulmonary disease. Head CT 01/26/21 17:43 IMPRESSION: 1. Symmetric enlargement of the ventricles which is disproportionate to the increased prominence of the sulci consistent with either central predominant cerebral atrophy but could also be seen with normal pressure hydrocephalus (NPH: clinical triad ataxia/gait disturbance, dementia, urinary incontinence). 2. 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 Quality VTE Prophylaxis VTE prophylaxis: mechanical ordered
--- NOTE | 2021-01-28 16:51 | PM.DS ---
DS: Admitting Diagnosis Admitting Diagnosis Admitting Diagnosis: Confusion DS: Discharge Diagnosis Discharge Diagnosis (1) Abnormal gait: Code(s): R26.9 - Unspecified abnormalities of gait and mobility Status: Acute Assessment and Plan: This is a 75 year old woman with history of H.pylori diagnosed 5 years ago, rechecked EGD recently and did not have it, [facility] 08/10/20 Aortic Valve Replaced, Mitral Valve repair, CABG s/p x3 by Dr. Elmo Garcia, fibromyalgia, who presented to the ER with complaints of confusion since Aug 2020 but worsening the last 1 month with associated generalized weakness, urinary incontinence/frequency and gait imbalance. Initial vitals were stable, afebrile, nontachycardic, normal RR and Oxygenation on room air. Normal BP 119/52. CBC was normal other than thrombopenia 144. Normal Coag panel. Slightly elevated Cr 1.2, BUN 17. Troponin negative x3. UA shows 2+ blood and positive Nitrate. Urine Culture still pending. CT findings suggesting possible normal pressure hydrocephalus. She does meet the clinical triad which is gait disturbance, dementia, urinary incontinence. I talked to our neurologist, Dr. Giles, who states we could do a lumbar puncture and further workup here but ultimately she will need to be treated by a neurosurgeon. He recommends if the patient is stable to be discharged home in she can follow-up with a neurosurgeon as an outpatient for further testing at that time. I talked to NeuroSurgery at [facility] who recommended outpatient work up. I was given the Phone number for neurosurgery services. I discussed this with the patient and her . I talked to the in length and he feels comfortable with taking her home and following up with Neurosugery outpatient. Return to ER warnings given. The patient understands and agrees with the plan. All questions answered. I was going to obtain an MRI, but we did not have the information from her recent surgery and valve replacements/repairs. I talked to the who feels she does not have symptoms of a stroke and these symptoms have been going on for a few months. MRI was cancelled and she was discharged in stable condition. She is being set up with Home Health. She does have an abnormal urinalysis with positive nitrites. She is having urinary symptoms but I believe these are chronic and that she does not have a urinary tract infection at this time. I believe her urinary symptoms are consistent with NPH. Urine Culture just returned 01/28/21 at 1710 showing >100,000 E. coli and pending Sensitivities. I will call the patient in antibiotics for acute UTI. Will call her and inform him of the antibiotics and treatment plan. (2) Weakness: Code(s): R53.1 - Weakness Status: Acute Assessment and Plan: PT/OT. Most likely due to NPH. (3) Frequent urinary incontinence: Code(s): N39.498 - Other specified urinary incontinence Status: Acute Assessment and Plan: Most likely due to NPH. I am ordering a urine culture which is pending. Will continue monitoring for any growth. 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 She is on Eliquis for paroxysmal atrial fibrillation, but I do not see any aspirin. I will have the nurse double check her home medications and place her on aspirin 81 mg for her old stroke. (5) Hypertension: Code(s): I10 - Essential (primary) hypertension Status: Acute Assessment and Plan: Blood pressure is
--- NOTE | 2021-01-28 17:10 | PC.NURSE ---
1706 Patients stated he felt comfortable taking patient home instead of SNF. Patient fairly steady on feet. Patients stated he would keep her safe.
== END 2021-01-28 17:05 | disposition home health service (06) | DRG 690 ==
LOC: ANHED 18:49 → ANH3MEDSUR 20:08
PROVIDERS: Emergency Medicine; Admitting Provider Internal Medicine; Emergency Provider Family Medicine; PCP Internal Medicine; Visit Provider Physician Assistant
DX: N39.0 Urinary tract infection, site not specified (principal); N39.498 Other specified urinary incontinence; R26.9 Unspecified abnormalities of gait and mobility; R53.1 Weakness; I48.0 Paroxysmal atrial fibrillation; I10 Essential (primary) hypertension; G47.33 Obstructive sleep apnea (adult) (pediatric); H18.519 Endothelial corneal dystrophy, unspecified eye; M79.7 Fibromyalgia; E87.5 Hyperkalemia; Z79.01 Long term (current) use of anticoagulants; Z79.899 Other long term (current) drug therapy; Z86.19 Personal history of other infectious and parasitic diseases; Z86.73 Personal history of transient ischemic attack (TIA), and cerebral infarction without residual deficits; Z87.891 Personal history of nicotine dependence; Z95.1 Presence of aortocoronary bypass graft; Z95.2 Presence of prosthetic heart valve
CPT/HCPCS: 36415; 51701; 70450; 71046; 80048; 81001; 84484; 85025; 85610; 85730; 87077; 87086; 87088; 87186; 93005; 97161; 97165; 99285; A9270; J1650; J7030

== ENCOUNTER 2021-11-14 13:51 | Emergency (ER) | payer MEDICARE, SELFPAY ==
--- NOTE | ~2021-11-14 | XR_ITS ---
EXAMINATION: [id number] Exam Date/Time: 11/14/2021 14:24 CDT CLINICAL HISTORY: rt lateral rib pain post fall 3 weeks ago Comparison: 01/26/21. RESULT: Lines, tubes, and devices: Intact sternotomy wires. Valve replacements. Atrial occlusion device. cor onary stents. [employer] shunt tubing Lungs and pleura: Clear. Cardiomediastinal silhouette: Stable cardiomediastinal silhouette. Other: Mildly displaced fractures of the right ninth and 10th posterolateral ribs. No acute upper ab dominal finding. IMPRESSION: Mildly displaced right ninth and 10th posterolateral rib fractures. Reviewed, dictated and finalized at location K.
--- NOTE | 2021-11-14 14:03 | ED.UPPEXIN ---
HPI - Extremity Injury (Upper) General Chief Complaint: Extremity Injury, Upper Stated Complaint: Rt Side Pain due to fall Time Seen by Provider: 11/14/21 14:03 Source: patient Mode of arrival: ambulatory Limitations: no limitations History of Present Illness HPI narrative: 76-year-old female presents with complaint of right-sided posterior rib pain for 3 weeks. Patient reports that she fell in bathtub 3 weeks ago. Slipped and hit right side. was with her and was able to help her get up. No head injury, no LOC. Patient's daughter is her caregiver and has been giving her naproxen for pain relief. Daughter reports that patient was attempting to sleep in bed on right side yesterday and had increase in pain. Prior to arrival patient had naproxen and states pain is controlled. She is ambulatory with steady gait. She also reports of an intermittent throbbing pain to urinary tract . No other symptoms. All systems reviewed and negative except as noted above. Related Data Home Medications Medication Instructions Recorded Confirmed brimonidine 1 drp OPHTHALMIC (EYE) BID 08/29/19 11/14/21 loperamide 2 mg capsule 2 mg PO DAILY 02/04/21 11/14/21 quetiapine [Seroquel] 100 mg PO QHS 11/14/21 11/14/21 Allergies Allergy/AdvReac Type Severity Reaction Status Date / Time No Known Allergies Allergy Verified 11/14/21 14:03 Review of Systems Review of Systems: CONSTITUTIONAL: Denies fever, chills, or sweats. EYES: Denies visual changes, redness, or discharge. ENT: Denies rhinorrhea, congestion, sore throat, or otalgia. CARDIOVASCULAR: Denies chest pain, palpitations, or edema. RESPIRATORY: Denies cough or dyspnea. GASTROINTESTINAL: Denies abdominal pain, nausea, vomiting, or diarrhea. GENITOURINARY: Reports intermittent pain to urinary tract. SKIN: Denies rash or itching. MUSCULOSKELETAL: Reports right posterior rib pain. NEUROLOGIC: Denies headache, numbness, or weakness. PSYCHIATRIC: Denies anxiety or depression. All other systems reviewed are negative, except as documented in HPI. [facility] Past Medical History Medical History Adverse effect of other nonsteroidal anti-inflammatory drugs [NSAID], initial encounter Anxiety Confusion Fibromyalgia Fuchs' corneal dystrophy H pylori ulcer Hyperlipidemia NPH (normal pressure hydrocephalus) VICKI (obstructive sleep apnea) Paroxysmal atrial fibrillation Renal mass Right renal mass Surgical History Surgical History History of brain shunt History of esophagogastroduodenoscopy (EGD) Hx of aortic valve replacement 08/10/20 at [facility] by Dr. Elmo Garcia Hx of CABG 08/10/20 at [facility] by Dr. Elmo Garcia Hx of mitral valve replacement 08/10/20 at [facility] by Dr. Elmo Garcia Stented coronary artery Family History Family History Sibling Patient's brother is in good health Family history of malignant neoplasm Father Family history of diabetes mellitus in first degree relative Family history of heart disease in male family member before age 55 Diabetes mellitus Family history of cardiovascular disease Family history of congestive heart failure Mother Family history of diabetes mellitus in first degree relative Diabetes mellitus Other Hypertension Social History Social History Smoking packs per day: 1 Smoking cigarettes per day: 20.0 Years smoked: 15 Smoking pack-years: 15.00 Smoking status: Former smoker Tobacco type: cigarettes Second hand tobacco smoke exposure: No Smoking end date: 07/16/79 Alcohol intake: former Substance use: never Substance use type: does not use Gender identity (if verbalized by the patient): Female Spiritual care concerns: No Comments At time of signature, agree with nursing
[2021-11-14 14:09] VITALS: BP 112/42; PULSE 60; RESP 18; TEMP 36.8
== END 2021-11-14 15:29 | disposition home or self-care (01) ==
PROVIDERS: Emergency Provider Nurse Practitioner Family; PCP Internal Medicine
DX: S22.41XA Multiple fractures of ribs, right side, initial encounter for closed fracture (principal); N39.0 Urinary tract infection, site not specified; E78.5 Hyperlipidemia, unspecified; I48.0 Paroxysmal atrial fibrillation; Z87.891 Personal history of nicotine dependence; W18.2XXA Fall in (into) shower or empty bathtub, initial encounter
CPT/HCPCS: 71101; 81003; 87077; 87086; 87186; 99213; G0463

== ENCOUNTER 2022-02-06 12:10 | Emergency (ER) | payer MEDICARE, SELFPAY ==
[2022-02-06 12:22] VITALS: BP 144/67; PULSE 65; RESP 18; TEMP 36.9; O2SAT 100
--- NOTE | 2022-02-06 12:28 | ED.FEMALEGU ---
HPI - Female Genitourinary General Chief complaint: Urogenital-Female Stated complaint: Possible UTI Time Seen by Provider: 02/06/22 12:28 Source: patient and RN notes reviewed Mode of arrival: ambulatory Limitations: no limitations History of Present Illness HPI Narrative: 76-year-old female with history of dementia presents with concern for labial burning and pain. She also reports ovary pain. She reports she is also having chronic diarrhea. Reports she has had diarrhea for approximately 2 months. Her daughter, who is her caregiver, reports she was recently treated for urinary tract infection and just finished antibiotics. Patient reports she is drinking a lot of cranberry juice. She denies abdominal pain, nausea, vomiting, fever, body aches, chills, sweats, abnormal vaginal discharge, dysuria, frequency, urgency, flank pain, hematuria, rash, itching MD elicited complaint: UTI Related Data Home Medications Medication Instructions Recorded Confirmed brimonidine 0.2 % eye drops 1 drp ophthalmic (eye) BID 08/29/19 01/04/22 loperamide 2 mg capsule 2 mg PO DAILY 02/04/21 01/04/22 quetiapine 50 mg tablet (Seroquel) 100 mg PO QHS 11/14/21 01/04/22 memantine 5 mg tablet 5 mg DAILY 02/06/22 02/06/22 Allergies Allergy/AdvReac Type Severity Reaction Status Date / Time No Known Allergies Allergy Verified 02/06/22 12:51 Review of Systems Review of Systems: CONSTITUTIONAL: Denies malaise, chills, sweats, or fever. CARDIOVASCULAR: Denies chest pain, palpitations, or edema. RESPIRATORY: Denies cough or dyspnea. GASTROINTESTINAL: Denies abdominal pain, nausea, vomiting, diarrhea GENITOURINARY: Denies dysuria, frequency, urgency, suprapubic pressure. Denies flank pain or hematuria. Reports labial pain and ovary pain SKIN: Denies rash or itching. MUSCULOSKELETAL: Denies back pain or myalgia. All systems reviewed & are unremarkable except as noted in HPI and below PMFSH Past Medical History Medical History Adverse effect of other nonsteroidal anti-inflammatory drugs [NSAID], initial encounter Anxiety Confusion Fibromyalgia Fuchs' corneal dystrophy H pylori ulcer Hyperlipidemia NPH (normal pressure hydrocephalus) VICKI (obstructive sleep apnea) Paroxysmal atrial fibrillation Renal mass Right renal mass Surgical History Surgical History History of brain shunt History of esophagogastroduodenoscopy (EGD) Hx of aortic valve replacement 08/10/[address] [facility] by Dr. Elmo Garcia Hx of CABG 08/10/[address] [facility] by Dr. Elmo Garcia Hx of mitral valve replacement 08/10/[address] [facility] by Dr. Elmo Garcia Stented coronary artery Family History Family History Sibling Patient's brother is in good health Family history of malignant neoplasm Father Family history of diabetes mellitus in first degree relative Family history of heart disease in male family member before age 55 Diabetes mellitus Family history of cardiovascular disease Family history of congestive heart failure Mother Family history of diabetes mellitus in first degree relative Diabetes mellitus Other Hypertension Social History Social History Smoking packs per day: 1 Smoking cigarettes per day: 20.0 Years smoked: 15 Smoking pack-years: 15.00 Smoking status: Former smoker Tobacco type: cigarettes Second hand tobacco smoke exposure: No Smoking end date: 07/16/79 Alcohol intake: former Substance use: never Substance use type: does not use Gender identity (if verbalized by the patient): Female Spiritual care concerns: No Comments At time of signature, agree with nursing past medical, surgical, social and family history. There is no relevant family history pertinent to the presenting complaint Ex
== END 2022-02-06 13:10 | disposition home or self-care (01) ==
PROVIDERS: Emergency Provider Nurse Practitioner; PCP Internal Medicine
DX: R10.2 Pelvic and perineal pain (principal); Z87.891 Personal history of nicotine dependence; M79.7 Fibromyalgia; E78.5 Hyperlipidemia, unspecified; G47.33 Obstructive sleep apnea (adult) (pediatric); I48.0 Paroxysmal atrial fibrillation; G91.2 (Idiopathic) normal pressure hydrocephalus; Z98.2 Presence of cerebrospinal fluid drainage device; Z95.2 Presence of prosthetic heart valve; Z95.1 Presence of aortocoronary bypass graft; F41.9 Anxiety disorder, unspecified
CPT/HCPCS: 81003; 99212; G0463